=== PATIENT | male | born 1940 | race Caucasian/White ===

== ENCOUNTER 2020-03-28 18:06 | Emergency (ER) | payer MEDICARE, OTHER, SELFPAY ==
[2020-03-28] VITALS (33 sets, daily range): BP systolic 124–167; BP diastolic 75–96; PULSE 70–153; RESP 13–23; TEMP 36.7–36.9; O2SAT 94–100
--- NOTE | ~2020-03-28 | XR_ITS ---
EXAMINATION: XR chest 2V DATE: 03/28/2020 18:52 INDICATION: Weakness TECHNIQUE: AP and lateral views of the chest are obtained. COMPARISON: None available FINDINGS: There are minimal airspace opacities of the right lower lobe. There is no pleural effusion or pneumothorax. The cardiomediastinal silhouette is normal. There is a moderate-sized sliding hiatal hernia. There is moderate thoracic spondylosis. IMPRESSION: 1. Minimal airspace opacities of the right lung base, consistent with atelectasis versus pneumonia. 2. Moderate-sized hiatal hernia. Reviewed, dictated and finalized at location A. IMPRESSION: 1. Minimal airspace opacities of the right lung base, consistent with atelectas is versus pneumonia. 2. Moderate-sized hiatal hernia.
--- NOTE | ~2020-03-28 | CT_ITS ---
EXAMINATION: CT brain wo con INDICATION: Weakness and falls COMPARISON: 12/13/2018 TECHNIQUE: Standard unenhanced head CT. The dose-length product (DLP) was 605.33 mGy-cm. The mA was a djusted according to patient size. Iterative reconstruction technique was employed. FINDINGS: There is no acute intraparenchymal hemorrhage. No evidence of mass lesion. No evidence of a cute infarction. There is moderate periventricular and subcortical hypodensity probably related to sm all vessel ischemic disease. There is moderate prominence of the sulci and ventricles related to cere bral atrophy. Intracranial calcified cerebral atherosclerosis is noted. There are no extra-axial marissa ections. There is no mass effect or midline shift. The orbits and soft tissues are unremarkable. The visualized sinuses and mastoid air cells are well aerated. IMPRESSION: 1. No acute intracranial abnormality. 2. Age related findings. Reviewed, dictated and finalized at location A.
--- NOTE | 2020-03-28 18:26 | ECG_ITS ---
Measurements Intervals [place] Rate: 72 P: 22 TN: 144 QRS: 25 QRSD: 94 T: 21 QT: 395 QTc: 434 Interpretive Statements SINUS RHYTHM NORMAL ECG Electronically Signed On 03-28-2020 19:18:01 CDT by Feliciano Can D.O.
[2020-03-28 18:44] LABS: Basophils Absolute Auto 0.1 K/mm3 (0.0-0.1); Basophils Percent Auto 0.6 % (0.2-1.2); Eosinophils Absolute Auto 0.3 K/mm3 (0-0.3); Eosinophils Percent Auto 2.5 % (0-4.4); Hematocrit 46.4 % (42.0-52.0); Hemoglobin 15.1 g/dL (14.0-18.0); Immature Granulocyte Absolute 0.11 K/mm3 (0.00-0.031); Lymphocytes Absolute Auto 1.24 K/mm3 (0.9-3.2); Lymphocytes Percent Auto 11.3 % (18.3-44.2); Mean Corpuscular HGB Conc 32.5 g/dl (32-36); Mean Corpuscular Hemoglobin 31.9 pg (26-34); Mean Corpuscular Volume 97.9 fl (80-100); Mean Platelet Volume 10.5 fl (7.4-10.4); Monocytes Absolute Auto 1.4 K/mm3 (0.1-0.6); Monocytes Percent Auto 12.5 % (2.6-8.5); Neutrophils Absolute Auto 7.9 K/mm3 (1.3-6.7); Neutrophils Percent Auto 72.1 % (45.5-73.1); Platelet Count Result 237 k/mm3 (150-375); Red Blood Count 4.74 M/mm3 (4.6-6.20)
--- NOTE | 2020-03-28 19:08 | ED.WEAKNESS ---
HPI - Weakness General Chief complaint: Weakness Stated complaint: old age Time Seen by Provider: 03/28/20 19:05 History of Present Illness HPI Narrative: Brought in by his daughter from the [facility] for multiple falls. He has reportedly fallen several times over the past week. No noted injuries. He denies any complaints, but says that he does feel weak in the legs. His daughter says that this is the first time she has seen him in a long time and his mobility is noticeably worse. History limited by dementia Related Data Home Medications Medication Instructions Recorded Confirmed coenzyme Q10 100 mg capsule 100 mg PO DAILY 11/14/19 11/14/19 donepezil 10 mg tablet 10 mg PO ONCE 11/14/19 11/14/19 lutein 6 mg capsule 6 mg PO DAILY 11/14/19 11/14/19 docusate sodium [Colace] 100 mg PO DAILY 03/28/20 Allergies Allergy/AdvReac Type Severity Reaction Status Date / Time Penicillins Allergy Unknown Unknown Verified 03/28/20 19:17 Review of Systems Review of Systems: All systems reviewed & are unremarkable except as noted in HPI and below Constitutional: Constitutional: Denies chills and Denies fever(s) Eyes: Eyes: Denies change in vision Cardiovascular: Cardiovascular: Denies chest pain Respiratory: Respiratory: Denies dyspnea Gastrointestinal: Gastrointestinal: Denies constipation, Denies diarrhea, Denies nausea and Denies vomiting Genitourinary: Genitourinary: Denies hematuria and Denies dysuria Neurologic: Denies vertigo, Denies dizziness, Denies syncope, Denies headache(s), Denies numbness and Reports weakness PMFSH Past Medical History Medical History Allergies Chronic atrial fibrillation Dementia without behavioral disturbance 01/30/19 Dyslipidemia Essential (primary) hypertension GERD without esophagitis Hx of bladder problems Prostate disease Rosacea Stroke 09/2018 Unsteady gait Surgical History Surgical History No pertinent past surgical history Family History Family History Father Hypertension Family history of cardiovascular disease Mother Carcinoma of colon Social History Social History Smoking status: Never smoker Second hand tobacco smoke exposure: No Alcohol intake: former Substance use: never Substance use type: does not use Gender identity (if verbalized by the patient): Male Exam Const: General: no acute distress and alert Orientation/consciousness: patient oriented x3 HENMT: Head: normal to inspection Mouth: Yes moist mucous membranes Eyes: Pupils: Equal, round and reactive pupils present Resp: Effort & Inspection: normal respiratory effort Auscultation: clear to auscultation bilaterally Cardio: Rate: regular rate Rhythm: regular rhythm Skin: General skin exam: normal color Neuro: General: patient oriented x3, moves all extremities, no focal motor deficits and CN's II-XI intact bilaterally Speech: normal speech Extrem: General: no edema Course Vital Signs Vital signs: Vital Signs Temperature 36.9 C 03/28/20 18:08 Pulse Rate 85 03/28/20 18:08 Respiratory Rate 18 03/28/20 18:08 Blood Pressure 136/75 03/28/20 18:08 Pulse Oximetry 98 03/28/20 18:08 Temperature 36.7 C 03/28/20 23:28 Pulse Rate 73 03/28/20 23:28 Respiratory Rate 17 03/28/20 23:28 Blood Pressure 159/95 H 03/28/20 23:28 Pulse Oximetry 100 03/28/20 23:28 MDM - Weakness MDM Narrative Medical decision making narrative: Work-up is essentially negative for acute injury or illness. His orthostatics were notably positive, although he had a breif period of a-fib during the test. Following hydration he did somewhat better. I feel that his weakness is most likely due to deconditioning from lack of activity during the COV-19
[2020-03-28 19:38] LABS: Alanine Aminotransferase 13 U/L (4-50); Albumin Level 3.9 g/dL (3.5-5.1); Alkaline Phosphatase 70 U/L (38-126); Aspartate Amino Transferase 22 U/L (17-59); Bilirubin,Total 0.9 mg/dL (0.2-1.3); Blood Urea Nitrogen 18 mg/dL (9-20); Carbon Dioxide 29 mmol/L (22-30); Chloride 104 mmol/L (98-107); Estimated CRCL calculation 55 ml/min; Estimated Glomerular Filt Rate > 60; Glucose 100 mg/dL (75-110); Potassium 4.3 mmol/L (3.4-5.0); Sodium 138 mmol/L (137-145)
[2020-03-28] MEDS: SODIUM CHLORIDE 0.9% IV 1,000 ML 999 ML IV CONT (21:58)
== END 2020-03-28 23:30 ==
PROVIDERS: General Practice; Emergency Provider Emergency Medicine; PCP Family Medicine
DX: R53.1 Weakness (principal); I48.20 Chronic atrial fibrillation, unspecified; F03.90 Unspecified dementia, unspecified severity, without behavioral disturbance, psychotic disturbance, mood disturbance, and anxiety; E78.5 Hyperlipidemia, unspecified; I10 Essential (primary) hypertension; K21.9 Gastro-esophageal reflux disease without esophagitis; Z86.73 Personal history of transient ischemic attack (TIA), and cerebral infarction without residual deficits
CPT/HCPCS: 36415; 70450; 71046; 80053; 85025; 93005; 96360; 99284; J7030

== ENCOUNTER 2021-01-30 13:38 | Inpatient (IN) | payer MEDICARE, OTHER, SELFPAY ==
[2021-01-30] VITALS (33 sets, daily range): BP systolic 110–161; BP diastolic 58–99; PULSE 55–75; RESP 11–20; TEMP 36.3; O2SAT 97–100; BMI 29.0
--- NOTE | ~2021-01-30 | CT_ITS ---
EXAMINATION: CT cervical spine wo con DATE: 01/30/2021 14:19 INDICATION: Fall with head injury TECHNIQUE: Computed tomography (CT) of the cervical spine was performed without intravenous contrast. Automated exposure control and iterative reconstruction technique were employed. The dose-length pro duct was 517.85 mGy-cm. COMPARISON: None FINDINGS: 1-2 mm anterolisthesis C4 on C5. Alignment is otherwise normal. Cervical vertebral body heights are n ormal. Chronic appearing mild anterior wedging of the incompletely visualized T3 vertebral body. No a cute fracture. Severe disc height loss with degenerative endplate changes at C3-C4 through C7-T1. Mod erate disc height loss at C2-C3, T1-T2 and T3-T4. Mild atherosclerotic calcified calcifications at th e bilateral carotid bulbs. Cervical soft tissues are otherwise unremarkable. 4-5 mm left apical nodul e. The following disc levels are specifically discussed: C2-C3: There is mild left and moderate to severe right uncovertebral joint osteoarthritis. There is s evere right and moderate to severe left facet joint osteoarthritis. There is mild bilateral neural fo raminal stenosis. There is no central canal stenosis. C3-C4: Small posterior disc osteophyte complex is present. There is moderate left and severe right un covertebral joint osteoarthritis. There is severe bilateral facet joint osteoarthritis. There is mode rate bilateral neural foraminal stenosis. There is mild central canal stenosis. C4-C5: Small posterior disc osteophyte complex is present. There is severe left and moderate right un covertebral joint osteoarthritis. There is severe right and moderate to severe left facet joint osteo arthritis. There is moderate left and moderate to severe right neural foraminal stenosis. There is mi ld central canal stenosis. C5-C6: Small posterior disc osteophyte complex is present. There is severe right and moderate to yajaira re left uncovertebral joint osteoarthritis. There is mild bilateral facet joint osteoarthritis. There is moderate bilateral neural foraminal stenosis. There is mild central canal stenosis. C6-C7: Small posterior disc osteophyte complex is present. There is moderate left and severe right un covertebral joint osteoarthritis. There is mild bilateral facet joint osteoarthritis. There is mild l eft and moderate right neural foraminal stenosis. There is mild central canal stenosis. C7-T1: There is left and severe right uncovertebral joint osteoarthritis. There is mild bilateral fac et joint osteoarthritis. There is moderate right and minimal left neural foraminal stenosis. There is no central canal stenosis. IMPRESSION: 1. Severe cervical spondylosis. No acute osseous abnormality. Reviewed, dictated and finalized at location A.
--- NOTE | ~2021-01-30 | CT_ITS ---
EXAMINATION: CT brain wo con DATE: 01/30/2021 14:19 INDICATION: Unwitnessed fall with head injury and abrasion to the right forehead TECHNIQUE: Computed tomography (CT) of the head was performed without intravenous contrast. Sagittal and coronal reconstructions were performed. The mA was adjusted according to patient size. Iterative reconstruction technique was employed. The dose-length product was 605.33 mGy-cm. COMPARISON: head CT dated 03/28/2020 FINDINGS: No fracture. Acute intracranial hemorrhage, acute infarction or abnormal extra axial fluid collection . There is mild to moderate scattered white matter hypoattenuation consistent with chronic small vess el ischemic disease. Symmetric prominence of the sulci and ventricles consistent with moderate age-ap propriate diffuse cerebral volume loss. No mass/mass effect. Changes of bilateral intraocular lens re placement. The orbits, paranasal sinuses and mastoid air cells are normal. IMPRESSION: 1. No fracture or acute intracranial process. 2. Age-related changes including moderate diffuse on loss and mild to moderate scattered white matter hypoattenuation consistent with chronic small vessel ischemic disease. Reviewed, dictated and finalized at location A. IMPRESSION: 1. No fracture or acute intracranial process. 2. Age-related changes including moderate diffuse on loss and mild to moderate scattered white matter hypoattenuation consistent with chronic small vessel isc hemic disease.
--- NOTE | ~2021-01-30 | XR_ITS ---
EXAMINATION: XR chest 1V portable DATE: 01/30/2021 14:27 INDICATION: Fall with head injury TECHNIQUE: frontal view of the chest was obtained. COMPARISON: Chest radiograph dated 03/28/2020 FINDINGS: Air-fluid level within a large hiatal hernia projecting over the normal sized heart. Mild streaky ate lectasis/scarring in the left lower lung zone. Right lung is clear. No pulmonary edema, pleural effus ion or pneumothorax. Severe left glenohumeral osteoarthritis. IMPRESSION: 1. No acute cardiopulmonary disease. 2. Large hiatal hernia. Reviewed, dictated and finalized at location A.
--- NOTE | 2021-01-30 13:45 | ECG_ITS ---
Measurements Intervals [place] Rate: 58 P: 1 DC: 159 QRS: -2 QRSD: 90 T: 31 QT: 431 QTc: 424 Interpretive Statements SINUS BRADYCARDIA BASELINE ARTIFACT- I, II, III, AVR, AVL, V1 BORDERLINE ECG Electronically Signed On 01-30-2021 14:10:27 CDT by Feliciano Can D.O.
--- NOTE | 2021-01-30 14:11 | ED.FALL ---
HPI - Fall General Chief Complaint: Fall Stated Complaint: unwitnessed fall Time Seen by Provider: 01/30/21 13:42 Source: RN notes reviewed History of Present Illness HPI Narrative: Patient presents to emergency department from assisted living via EMS for fall. Patient was found to have abrasion on right forehead and on ground by staff unwitnessed fall at the facility patient does not recall what happened is unable to give any full history patient denies any pain at this time denies any vision changes chest pain shortness of breath abdominal pain nausea or vomiting Related Data Home Medications Medication Instructions Recorded Confirmed coenzyme Q10 100 mg capsule 100 mg PO DAILY 11/14/19 11/14/19 donepezil 10 mg tablet 10 mg PO ONCE 11/14/19 11/14/19 lutein 6 mg capsule 6 mg PO DAILY 11/14/19 11/14/19 docusate sodium [Colace] 100 mg PO DAILY 03/28/20 Allergies Allergy/AdvReac Type Severity Reaction Status Date / Time Penicillins Allergy Unknown Unknown Verified 03/28/20 19:17 Review of Systems Review of Systems: Narrative: Gen.: Denies fevers or chills Eyes: Denies eye pain or visual change ENT: Denies congestion Respiratory: Denies shortness of breath or cough CV: Denies chest pain GI: Denies abdominal pain nausea, emesis Musculoskeletal: Denies back pain or muscle pain Neuro: Denies numbness, tingling, weakness or focal weakness Skin: Denies rash Except as documented, all other systems reviewed and negative PMFSH Past Medical History Medical History (Updated 01/30/21 @ 16:20 by Bud Delarosa DO) Allergies Chronic atrial fibrillation Dementia without behavioral disturbance 01/30/19 Dyslipidemia Essential (primary) hypertension GERD without esophagitis Hx of bladder problems Prostate disease Rosacea Stroke 09/2018 Unsteady gait Surgical History Surgical History No pertinent past surgical history Family History Family History Father Hypertension Family history of cardiovascular disease Mother Carcinoma of colon Social History Social History Smoking status: Never smoker Second hand tobacco smoke exposure: No Alcohol intake: former Substance use: never Substance use type: does not use Gender identity (if verbalized by the patient): Male Exam Narrative: Exam Narrative: APPEARANCE: No acute distress, nontoxic, resting in bed EYES: PERRL HEENT: Normocephalic, abrasion over right anterior forehead nares patent RESPIRATORY: No respiratory distress Clear to auscultation bilaterally with no rhonchi wheezing or rales. CARDIOVASCULAR: Regular rate and rhythm without murmurs rubs or gallops. ABDOMINAL: Soft, nontender, nondistended, no rebound or guarding MUSCULOSKELETAl: Moves all extremities. No clubbing, cyanosis or edema. NEURO: Awake and alert x 1. Following commands, speech normal, no focal deficits SKIN:: Warm, dry. No rashes lesions or abrasions PSYCHIATRIC: Normal affect/mood, Course Course Emergency Course: Discussed with ELIAS Parker for Dr. Head presentation work-up agrees with mission at this time Discussed with patient and family results of workup and diagnosis. Discussed need for admission. Patient and family understand and agree to current treatment plan Vital Signs Vital signs: Vital Signs Temperature 97.3 F L 01/30/21 13:38 Pulse Rate 60 01/30/21 13:38 Respiratory Rate 14 01/30/21 13:38 Blood Pressure 146/93 H 01/30/21 13:38 Pulse Oximetry 100 01/30/21 13:38 Temperature 97.3 F L 01/30/21 13:38 Pulse Rate 56 L 01/30/21 16:01 Respiratory Rate 11 L 01/30/21 16:01 Blood Pressure 161/80 H 01/30/21 16:01 Pulse Oximetry 98 01/30/21 15:45 MDM - Fall Lab Data Result diagrams: 01/30/21 14:22 01/30/21 14:22 Labs: Lab Results
[2021-01-30 14:34] LABS: Basophils Absolute Auto 0.1 K/mm3 (0.0-0.1); Basophils Percent Auto 0.9 % (0.2-1.2); Eosinophils Absolute Auto 0.5 K/mm3 (0-0.3); Eosinophils Percent Auto 5.8 % (0-4.4); Hematocrit 39.6 % (42.0-52.0); Hemoglobin 12.9 g/dL (14.0-18.0); Immature Granulocyte Percent A 1.1 % (0-0.5); Lymphocytes Absolute Auto 1.11 K/mm3 (0.9-3.2); Lymphocytes Percent Auto 12.1 % (18.3-44.2); Mean Corpuscular HGB Conc 32.6 g/dl (32-36); Mean Corpuscular Hemoglobin 31.2 pg (26-34); Mean Corpuscular Volume 95.7 fl (80-100); Monocytes Absolute Auto 1.4 K/mm3 (0.1-0.6); Monocytes Percent Auto 14.7 % (2.6-8.5); Neutrophils Percent Auto 65.4 % (45.5-73.1); Platelet Count Result 231 k/mm3 (150-375); Red Blood Count 4.14 M/mm3 (4.6-6.20); Red Cell Distribution Width 13.2 % (11.5-14.5); White Blood Count 9.2 K/mm3 (4.5-10.0)
[2021-01-30 14:44] LABS: INR 1.1; Partial Thromboplastin Time 26.3 SECONDS (22.3-36.8); Prothrombin Time 14.5 Seconds (11.1-14.7)
[2021-01-30 14:45] LABS: Alanine Aminotransferase 14 U/L (4-50); Albumin Level 3.7 g/dL (3.5-5.1); Alkaline Phosphatase 71 U/L (38-126); Anion Gap 5 mmol/L (8-16); Aspartate Amino Transferase 20 U/L (17-59); Bilirubin,Total 0.2 mg/dL (0.2-1.3); Blood Urea Nitrogen 16 mg/dL (9-20); Calcium 9.1 mg/dL (8.4-10.2); Carbon Dioxide 30 mmol/L (22-30); Chloride 104 mmol/L (98-107); Estimated CRCL calculation 47 ml/min; Estimated Glomerular Filt Rate 59; Glucose 114 mg/dL (75-110); Potassium 3.8 mmol/L (3.4-5.0); Sodium 139 mmol/L (137-145)
[2021-01-30 15:55] LABS: Add Urine Microscopic? YES; Appearance Urine Cloudy (Clear); Bacteria Urine Trace /hpf; Bilirubin Urine Negative (Negative); Color Urine Yellow (Yellow); Glucose Urine UA Negative (Negative); Ketones Urine Negative (Negative); Leukocyte Esterase Ur 3+ LEU/UL (Negative); Mucus Urine Few /lpf; Nitrate Urine Negative (Negative); Protein Urine 2+ mg/dL (Negative); Specific Grav Ur 1.026 (1.001-1.035); Squamous Epithelial Cell Urine Rare /hpf (Few); WBC Clumps Urine Present /HPF; WBC Urine 31-50 /hpf
[2021-01-30 15:56] LABS: Blood Urine Negative (Negative)
--- NOTE | 2021-01-30 17:14 | PC.NURSE ---
This RN attempted to call report to [phone], inpatient RN not available at this time and will return call
--- NOTE | 2021-01-30 17:21 | PC.NURSE ---
sbar refaxed to 3rd med
--- NOTE | 2021-01-30 17:55 | ADMGEN ---
This patient, Bill Martinez, was admitted to Medical Room 343-01. Patient/family oriented to hospital policies and general routines including ID bracelet, bed and alarms, visiting hours, pain management, procedures, bathroom and other care routines, personal items, smoking policy, room service/diet, and visiting hours. Information on how to activate the Rapid Response Team has been discussed. Patient/Family are encouraged to report perceived risks to care and to ask questions if they do not understand what they are told or what they should do.
[2021-01-30] MEDS: LACTATED RINGERS 1,000 ML 125 ML IV CONT (18:22)
--- NOTE | 2021-01-30 19:11 | PC.NURSE ---
Patient's daughter, Hazel, called for status update and assisted with admission questions.
--- NOTE | 2021-01-30 23:09 | PM.IMHP ---
H&P: HPI History of Present Illness Date/Time: 01/30/21 23:09 this is a 80-year-old male patient with a history of dementia. He resides alone at [facility]. The patient was found on the ground today with an abrasion on his head. He also has an abrasion to his left elbow. He had a unwitnessed fall. Patient stated he feels that he tripped over something daycare really recall what happened. H&H is 12.9 and 39.6. Radiology as no fracture or acute intracranial process. Age-related changes including moderate diffuse on loss and mild to moderate scattered white matter hypoattenuation consistent with chronic small vessel ischemic disease. Cervical spine CT was read by radiology as severe cervical spondylosis. Chest x-ray was read as no acute cardiopulmonary disease. Large hiatal hernia. Urine has 3+ leukocyte esterase. 31-50 wbc's. Trace bacteria. The patient was started on Levaquin. Patient was also started on Levaquin. The patient is being admitted to observation on the date of service of 01/30/2021. Chief Complaint: Fall Review of Systems Review of Systems: All systems reviewed & are unremarkable except as noted in HPI and below Constitutional: Constitutional: Reports as per HPI and Reports no additional constitutional complaints Eyes: Eyes: Reports as per HPI and Reports no additional eye complaints ENT: Reports system reviewed and no additional complaints, except as documented and Reports Normal hearing present Cardiovascular: Cardiovascular: Reports no additional cardiovascular complaints Respiratory: Respiratory: Reports no additional respiratory complaints and Reports no additional respiratory complaints Gastrointestinal: Gastrointestinal: Reports as per HPI and Reports no additional gastrointestinal complaints Musculoskeletal: Musculoskeletal: Reports no additional musculoskeletal complaints Integumentary/Breasts: Skin/Breast: Reports system reviewed and no additional complaints, except as docu and Reports as per HPI Neurologic: Reports system reviewed and no additional complaints, except as documented, Reports as per HPI and Reports Normal hearing present Psychiatric: Psychiatric: Reports no additional psychiatric complaints and Reports as per HPI Endocrine: Endocrine: Reports no additional endocrine complaints Hematologic/Lymphatic: Hematologic/Lymphatic: Reports no additional hematologic/lymphatic complaints Allergic/Immunologic: Allergic/Immunologic: Reports no additional allergic/immunologic complaints [facility] Past Medical History Medical History Allergies Chronic atrial fibrillation Dementia without behavioral disturbance 03/26/19 Dyslipidemia Essential (primary) hypertension GERD without esophagitis Hx of bladder problems Prostate disease Rosacea Stroke 09/2018 Unsteady gait Surgical History Surgical History No pertinent past surgical history Family History Family History Father Hypertension Family history of cardiovascular disease Mother Carcinoma of colon Social History Social History (Updated 01/30/21 @ 23:23 by Elena Martínez NP) Social History: The patient is a DNR. Patient is and has 1 daughter. He does not have a durable power [employer] team member for healthcare. The patient resides at [facility]. 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 The patient denied any alcohol, marijuana, or illicit drugs. Smoking status: Never smoker Second hand tobacco smoke exposure: No Alcohol intake: former Substance use: never Substance use type: does not use Living arrangements: alone Gender identity (if verbalized by the patient): Male Spiritual care concerns: No Meds Home Medications and Allergies Home Medications Medication Instructions
[2021-01-31] VITALS (9 sets, daily range): BP systolic 144–158; BP diastolic 78–87; PULSE 60–79; RESP 16–20; TEMP 36.1–36.6; O2SAT 94–97
[2021-01-31] MEDS: LACTATED RINGERS 1,000 ML 125 ML IV CONT (04:43)
[2021-01-31 05:37] LABS: Basophils Absolute Auto 0.1 K/mm3 (0.0-0.1); Basophils Percent Auto 0.4 % (0.2-1.2); Eosinophils Absolute Auto 0.2 K/mm3 (0-0.3); Eosinophils Percent Auto 1.5 % (0-4.4); Hematocrit 39.1 % (42.0-52.0); Hemoglobin 12.9 g/dL (14.0-18.0); Immature Granulocyte Absolute 0.11 K/mm3 (0.00-0.031); Lymphocytes Absolute Auto 0.87 K/mm3 (0.9-3.2); Lymphocytes Percent Auto 7.6 % (18.3-44.2); Mean Corpuscular Hemoglobin 31.2 pg (26-34); Mean Corpuscular Volume 94.4 fl (80-100); Mean Platelet Volume 9.1 fl (7.4-10.4); Monocytes Absolute Auto 1.4 K/mm3 (0.1-0.6); Monocytes Percent Auto 12.5 % (2.6-8.5); Neutrophils Absolute Auto 8.8 K/mm3 (1.3-6.7); Platelet Count Result 219 k/mm3 (150-375); Red Blood Count 4.14 M/mm3 (4.6-6.20); White Blood Count 11.4 K/mm3 (4.5-10.0)
[2021-01-31 06:33] LABS: Anion Gap 1 mmol/L (8-16); Blood Urea Nitrogen 12 mg/dL (9-20); Calcium 8.9 mg/dL (8.4-10.2); Carbon Dioxide 29 mmol/L (22-30); Chloride 107 mmol/L (98-107); Estimated CRCL calculation 59 ml/min; Estimated Glomerular Filt Rate > 60; Glucose 108 mg/dL (75-110); Potassium 3.7 mmol/L (3.4-5.0); Sodium 137 mmol/L (137-145)
[2021-01-31] MEDS: FAMOTIDINE 20 MG TABLET PO ×2 (08:10→20:40)
[2021-01-31] MEDS: METOPROLOL TARTRATE 12.5 MG TABLET BY MOUTH ×2 (08:10→20:39)
[2021-01-31] MEDS: CYANOCOBALAMIN 1,000 MCG TABLET 1000 MCG BY MOUTH (08:10)
[2021-01-31] MEDS: RIVAROXABAN 15 MG TABLET BY MOUTH (08:11)
[2021-01-31] MEDS: DONEPEZIL HCL 10 MG TABLET PO (08:11)
[2021-01-31] MEDS: PRAVASTATIN SODIUM 20 MG TABLET BY MOUTH (08:11)
--- NOTE | 2021-01-31 10:36 | PM.IMPN ---
Progress Note: A&P Assessment and Plan (1) Gait instability: Code(s): R26.81 - Unsteadiness on feet Status: Acute Assessment and Plan: Patient sustained unwitnessed fall at assisted living. He feels he's had more difficulty walking lately. He has shuffling gait per PT notes and may have Parkinson's? Known dementia with chronic issues of gait instability. PT/OT. Family wishes for [place] to go back to [place] and continue his current PT/OT there. COVID test for dc planning. (2) Acute UTI: Code(s): N39.0 - Urinary tract infection, site not specified Status: Acute Assessment and Plan: Abnormal UA with dysuria. Continue Levaquin (day 2) while awaiting urine culture. (3) Contusion of forehead: Code(s): S00.83XA - Contusion of other part of head, initial encounter Status: Acute Assessment and Plan: From fall. CT brain shows no acute intracranial findings. No repair required, looks good today. (4) Dementia without behavioral disturbance: Qualifiers: Dementia type: unspecified type Qualified Code(s): F03.90 - Unspecified dementia without behavioral disturbance Code(s): F03.90 - Unspecified dementia without behavioral disturbance Status: Chronic Assessment and Plan: Continue with Aricept and Seroquel. Pleasant and cooperative today. (5) Chronic atrial fibrillation: Code(s): I48.20 - Chronic atrial fibrillation, unspecified Status: Chronic Assessment and Plan: Continue home metoprolol and Xarelto. (6) Essential (primary) hypertension: Code(s): I10 - Essential (primary) hypertension Status: Chronic Assessment and Plan: BPs reviewed; a bit elevated last 150/87. Continue metoprolol. Monitor BP and adjust treatment as needed. (7) History of prostate cancer: Code(s): Z85.46 - Personal history of malignant neoplasm of prostate Status: Resolved Subjective Date/time seen: 01/31/21 10:30 Interval history: Mr. Martinez is a pleasant 80yo M with dementia admitted after a fall, also found to have UTI. He reports increased trouble walking lately. He reports dysuria over the last 3 days or so, none today. He reports weakness in his legs is why he fell, denies dizziness or chest pain at present or when he fell. Notes some mild shortness of breath with activity. No nausea, vomiting, or abdominal pain. Large ventral hernia he notes has been present for years and is not painful. Review of Systems Review of Systems: All systems reviewed & are unremarkable except as noted in HPI and below Exam Narrative: Exam Narrative: General: Male resting comfortably sitting up in bedside chair in no acute distress. HEENT: Normocephalic, EOMI, oral mucosa moist. Cardiovascular: Rate and rhythm are regular with some ectopic beats heard. Respiratory: Lungs clear to auscultation bilaterally. Respirations even and non-labored. Abdomen: Large ventral hernia is present without pain to palpation. Rest of abdomen is soft, nontender with positive bowel sounds. Extremities: Peripheral pulses intact. No edema. Neuro: Awake and alert; oriented to self and place. No focal neurological deficits. Speech is clear. Cooperative. Objective Data Vital Signs Vital Signs: Last Vital Signs Temp 97.8 F 01/31/21 14:00 Pulse 63 01/31/21 14:00 Resp 16 01/31/21 14:00 BP 150/87 H 01/31/21 14:00 Pulse Ox 97 01/31/21 14:00 Intake/Output Intake/Output: Intake & Output 01/28/21 01/29/21 01/30/21 01/31/21 23:59 23:59 23:59 23:59 Intake Total 150 1250 Output Total 400 Balance 150 850 Meds/Results Medications: Active Medications Generic Name Dose Route S
[2021-01-31] MEDS: QUEtiapine FUMARATE 25 MG TABLET BY MOUTH (17:09)
[2021-02-01 06:00] VITALS: BP 153/85; PULSE 61; RESP 18; TEMP 36.4; O2SAT 95
[2021-02-01 06:03] LABS: Basophils Absolute Auto 0.1 K/mm3 (0.0-0.1); Basophils Percent Auto 0.5 % (0.2-1.2); Eosinophils Absolute Auto 0.3 K/mm3 (0-0.3); Eosinophils Percent Auto 2.6 % (0-4.4); Hematocrit 39.5 % (42.0-52.0); Hemoglobin 12.9 g/dL (14.0-18.0); Immature Granulocyte Absolute 0.12 K/mm3 (0.00-0.031); Immature Granulocyte Percent A 1.1 % (0-0.5); Lymphocytes Absolute Auto 1.15 K/mm3 (0.9-3.2); Lymphocytes Percent Auto 10.9 % (18.3-44.2); Mean Corpuscular HGB Conc 32.7 g/dl (32-36); Mean Corpuscular Hemoglobin 30.7 pg (26-34); Mean Platelet Volume 9.2 fl (7.4-10.4); Monocytes Absolute Auto 1.5 K/mm3 (0.1-0.6); Monocytes Percent Auto 14.3 % (2.6-8.5); Neutrophils Absolute Auto 7.4 K/mm3 (1.3-6.7); Neutrophils Percent Auto 70.6 % (45.5-73.1); Platelet Count Result 230 k/mm3 (150-375); Red Cell Distribution Width 13.1 % (11.5-14.5); White Blood Count 10.5 K/mm3 (4.5-10.0)
[2021-02-01 08:35] VITALS: PULSE 66
[2021-02-01] MEDS: DONEPEZIL HCL 10 MG TABLET PO (08:35)
[2021-02-01] MEDS: METOPROLOL TARTRATE 12.5 MG TABLET BY MOUTH ×2 (08:35→21:06)
[2021-02-01] MEDS: PRAVASTATIN SODIUM 20 MG TABLET BY MOUTH (08:35)
[2021-02-01] MEDS: CYANOCOBALAMIN 1,000 MCG TABLET 1000 MCG BY MOUTH (08:35)
[2021-02-01] MEDS: RIVAROXABAN 15 MG TABLET BY MOUTH (08:35)
[2021-02-01] MEDS: FAMOTIDINE 20 MG TABLET PO ×2 (08:35→21:06)
--- NOTE | 2021-02-01 14:26 | PM.IMPN ---
Progress Note: A&P Assessment and Plan (1) Gait instability: Code(s): R26.81 - Unsteadiness on feet Status: Acute Assessment and Plan: Patient sustained unwitnessed fall at assisted living. He feels he's had more difficulty walking lately. He has shuffling gait per PT notes and may have Parkinson's? Known dementia with chronic issues of gait instability. PT/OT. Family [place] back [place] and continue his current PT/OT there. COVID test for dc planning came back late this evening, plan for dc in AM. (2) Acute UTI: Code(s): N39.0 - Urinary tract infection, site not specified Status: Acute Assessment and Plan: Abnormal UA with dysuria. Continue Levaquin (day 3). Urine culture represents possible contamination however given his symptoms will continue with current therapy. (3) Contusion of forehead: Code(s): S00.83XA - Contusion of other part of head, initial encounter Status: Acute Assessment and Plan: From fall. CT brain shows no acute intracranial findings. (4) Dementia without behavioral disturbance: Qualifiers: Dementia type: unspecified type Qualified Code(s): F03.90 - Unspecified dementia without behavioral disturbance Code(s): F03.90 - Unspecified dementia without behavioral disturbance Status: Chronic Assessment and Plan: Continue with Aricept and Seroquel. Pleasant and cooperative today. (5) Chronic atrial fibrillation: Code(s): I48.20 - Chronic atrial fibrillation, unspecified Status: Chronic Assessment and Plan: Continue home metoprolol and Xarelto. (6) Essential (primary) hypertension: Code(s): I10 - Essential (primary) hypertension Status: Chronic Assessment and Plan: BPs reviewed; last 120/68. Continue metoprolol. Monitor BP and adjust treatment as needed. (7) History of prostate cancer: Code(s): Z85.46 - Personal history of malignant neoplasm of prostate Status: Resolved Subjective Date/time seen: 02/01/21 14:00 Interval history: Mr. Martinez is a pleasant 80yo M with dementia admitted after a fall, also suspected to have UTI. He reports increased trouble walking lately. He has longstanding issues with gait. He had dysuria for 3 days prior to arrival which is now resolved. Denies chest pain or shortness of breath. Not in any pain. Large ventral hernia he notes has been present for years and is not painful. Daughter, Hazel, at the bedside. Discussed updates with patient's permission. Review of Systems Review of Systems: All systems reviewed & are unremarkable except as noted in HPI and below Exam Narrative: Exam Narrative: General: Male resting comfortably sitting up in bed in no acute distress. HEENT: Normocephalic, EOMI, oral mucosa moist. Cardiovascular: Rate and rhythm are regular with some ectopic beats heard. Respiratory: Lungs clear to auscultation bilaterally. Respirations even and non-labored. Abdomen: Large ventral hernia is present without pain to palpation. Rest of abdomen is soft, nontender with positive bowel sounds. Extremities: Peripheral pulses intact. No edema. Neuro: Awake and alert; oriented to self and place. No focal neurological deficits. Speech is clear. Cooperative. Objective Data Vital Signs Vital Signs: Vital Signs - 24 hr 01/31/21 20:39 01/31/21 21:59 02/01/21 06:00 Temperature 97.7 F 97.6 F Pulse Rate 60 78 61 Respiratory Rate 18 18 Blood Pressure 158/78 H 153/85 H Pulse Oximetry 94 95 02/01/21 08:35 Temperature Pulse Rate 66 Respiratory Rate Blood Pressure Pulse Oximetry Intake/Output Intake/Output: Intake & Output 01/29/21 0
[2021-02-01 14:36] VITALS: BP 120/68; PULSE 70; RESP 14; TEMP 36.3; O2SAT 97
[2021-02-01 15:25] LABS: SARS-CoV-2 RNA PCR Negative
[2021-02-01] MEDS: ACETAMINOPHEN 500 MG TABLET 1000 MG PO (17:20)
[2021-02-01] MEDS: QUEtiapine FUMARATE 25 MG TABLET BY MOUTH (17:20)
[2021-02-01 21:05] VITALS: BP 125/71; PULSE 93; RESP 16; TEMP 36; O2SAT 94
[2021-02-01 21:06] VITALS: PULSE 90
[2021-02-02 05:49] VITALS: BP 148/86; PULSE 62; RESP 16; TEMP 35.9; O2SAT 99
[2021-02-02 09:20] VITALS: PULSE 62
[2021-02-02] MEDS: METOPROLOL TARTRATE 12.5 MG TABLET BY MOUTH (09:20)
[2021-02-02] MEDS: FAMOTIDINE 20 MG TABLET PO (09:20)
[2021-02-02] MEDS: CYANOCOBALAMIN 1,000 MCG TABLET 1000 MCG BY MOUTH (09:21)
[2021-02-02] MEDS: RIVAROXABAN 15 MG TABLET BY MOUTH (09:21)
[2021-02-02] MEDS: DONEPEZIL HCL 10 MG TABLET PO (09:21)
[2021-02-02] MEDS: PRAVASTATIN SODIUM 20 MG TABLET BY MOUTH (09:21)
--- NOTE | 2021-02-02 19:21 | PM.DS ---
DS: Admitting Diagnosis Admitting Diagnosis Admitting Diagnosis: Fall DS: Discharge Diagnosis Discharge Diagnosis (1) Gait instability: Code(s): R26.81 - Unsteadiness on feet Status: Acute Assessment and Plan: Date of Admission 01/30/21 Date of Discharge/DOS Mr. Martinez is a 80yo M with dementia, chronic atrial fibrillation, hypertension, history of prostate cancer who presented to the ED for evaluation after an unwitnessed fall at assisted living. He describes a long-standing issue with gait instability. He fell and was found down on the floor with some slight bleeding to right forehead. CT brain demonstrated no acute intracranial abnormality. He worked with PT/OT. Placement for rehab offered, patient and family wish to bring him back to his apartment at assisted living and continue therapy there. Patient described dysuria for 3 days prior to arrival. Urinalysis grossly abnormal thus he was started on levaquin. Urine culture results were inconclusive and may have represented contamination thus unable to rule UTI in or out. Given his symptoms he was continued on antibiotic therapy and this was discussed with patient and his daughter. He was hemodynamically stable for discharge on 02/02/21 and will follow up with PCP and his established neurologist, Dr Philippe. Patient sustained unwitnessed fall at assisted living. He feels he's had more difficulty walking lately. He has shuffling gait per PT notes. Known dementia with chronic issues of gait instability. PT/OT. [place] and continue his current PT/OT there. (2) Acute UTI: Code(s): N39.0 - Urinary tract infection, site not specified Status: Suspected Assessment and Plan: Abnormal UA with dysuria. Treated with levaquin Urine culture indeterminate however given his symptoms will continue with current therapy. (3) Contusion of forehead: Code(s): S00.83XA - Contusion of other part of head, initial encounter Status: Acute Assessment and Plan: From fall. CT brain shows no acute intracranial findings. (4) Dementia without behavioral disturbance: Qualifiers: Dementia type: unspecified type Qualified Code(s): F03.90 - Unspecified dementia without behavioral disturbance Code(s): F03.90 - Unspecified dementia without behavioral disturbance Status: Chronic Assessment and Plan: Continue with Aricept and Seroquel. Pleasant and cooperative today. (5) Chronic atrial fibrillation: Code(s): I48.20 - Chronic atrial fibrillation, unspecified Status: Chronic Assessment and Plan: Continue home metoprolol and Xarelto. (6) Essential (primary) hypertension: Code(s): I10 - Essential (primary) hypertension Status: Chronic Assessment and Plan: Continue metoprolol. (7) History of prostate cancer: Code(s): Z85.46 - Personal history of malignant neoplasm of prostate Status: Resolved DS: Summary Hospital Course Hospital Course: See above Time Spent with Patient Time attestation: Total time spent providing and/or coordinating discharge services: 35 minutes Exam Narrative: Exam Narrative: General: Male resting comfortably sitting up in bed in no acute distress. HEENT: Normocephalic, EOMI, oral mucosa moist. Cardiovascular: Rate and rhythm are regular with some ectopic beats heard. Respiratory: Lungs clear to auscultation bilaterally. Respirations even and non-labored. Abdomen: Large ventral hernia is present without pain to palpation. Rest of abdomen is soft, nontender with positive bowel sounds. Extremities: Peripheral pu
--- NOTE | 2021-02-05 13:22 | PC.NURSE ---
Blood cx are negative.
== END 2021-02-02 15:45 | DRG 92 ==
LOC: ANHED 13:46 → ANH3MED 16:14
PROVIDERS: Physician Assistant; Admitting Provider Internal Medicine; Emergency Provider Emergency Medicine; PCP Family Medicine; Visit Provider Internal Medicine
DX: R26.81 Unsteadiness on feet (principal); N39.0 Urinary tract infection, site not specified; I48.20 Chronic atrial fibrillation, unspecified; Z20.822 Contact with and (suspected) exposure to COVID-19; S00.83XA Contusion of other part of head, initial encounter; S50.312A Abrasion of left elbow, initial encounter; W18.30XA Fall on same level, unspecified, initial encounter; I10 Essential (primary) hypertension; E78.5 Hyperlipidemia, unspecified; F03.90 Unspecified dementia, unspecified severity, without behavioral disturbance, psychotic disturbance, mood disturbance, and anxiety; K21.9 Gastro-esophageal reflux disease without esophagitis; K44.9 Diaphragmatic hernia without obstruction or gangrene; Z66 Do not resuscitate; Z85.46 Personal history of malignant neoplasm of prostate; Z86.73 Personal history of transient ischemic attack (TIA), and cerebral infarction without residual deficits; Z79.01 Long term (current) use of anticoagulants; Z79.899 Other long term (current) drug therapy; Z88.0 Allergy status to penicillin
CPT/HCPCS: 36415; 70450; 71045; 72125; 80048; 80053; 81001; 85025; 85610; 85730; 87040; 87086; 87088; 93005; 96361; 96365; 96366; 97110; 97116; 97161; 97165; 97530; 97535; 99285; A9270; C9803; G0378; J1956; J7120; U0003; U0005

== ENCOUNTER 2021-12-29 15:50 | Observation (INO) | payer MEDICARE, SELFPAY ==
--- NOTE | ~2021-12-29 | XR_ITS ---
EXAMINATION: XR chest 1V portable 12/29/2021 16:54 INDICATION: Transient alteration of awareness. PROCEDURE: AP portable chest COMPARISON: Comparison to multiple prior studies sequentially, with oldest reviewed study dated 01/30. FINDINGS: The lungs are clear. The cardiomediastinal silhouette is within normal limits. There are no pleural effusions. There is no pneumothorax suspected. Moderate elevation of the right diaphragm . Large hiatal hernia. IMPRESSION: 1: NO ACUTE CARDIOPULMONARY DISEASE. Reviewed, dictated and finalized at location B. DEALER
--- NOTE | ~2021-12-29 | CT_ITS ---
EXAMINATION: CT brain wo con DATE: 12/29/2021 17:00 INDICATION: Altered mental status. Confusion. TECHNIQUE: Computed tomography (CT) of the head was performed without intravenous contrast. The dose- length product was 681.00 mGy-cm. Automated exposure control and iterative reconstruction technique w ere employed. COMPARISON: CT dated 01/30/2021 FINDINGS: Generalized atrophy. There are scattered moderate periventricular and subcortical white mat ter changes, most likely related to small vessel ischemic disease (microangiopathy). No acute intracr anial hemorrhage, infarction, mass or mass effect. Paranasal sinuses and mastoids are pneumatized. No depressed skull fractures. IMPRESSION: 1. No acute intracranial abnormality. 2: Chronic age-related findings. Reviewed, dictated and finalized at location B. LUTION MANAGER
[2021-12-29 15:56] VITALS: BP 171/98; PULSE 63; RESP 15; TEMP 36.7; O2SAT 98
--- NOTE | 2021-12-29 16:22 | ECG_ITS ---
Measurements Intervals [place] Rate: 61 P: 19 NC: 168 QRS: -10 QRSD: 100 T: 40 QT: 442 QTc: 445 Interpretive Statements SINUS RHYTHM BASELINE ARTIFACT- II, III, AVR, AVF, V1-V6 NORMAL ECG Electronically Signed On 12-29-2021 18:12:57 EDGER MACHINE HELPER by Feliciano Can D.O.
[2021-12-29 16:45] LABS: Basophils Absolute Auto 0.1 K/mm3 (0.0-0.1); Basophils Percent Auto 0.6 % (0.2-1.2); Eosinophils Absolute Auto 0.4 K/mm3 (0-0.3); Eosinophils Percent Auto 3.3 % (0-4.4); Hematocrit 43.4 % (42.0-52.0); Hemoglobin 14.1 g/dL (14.0-18.0); Immature Granulocyte Absolute 0.15 K/mm3 (0.00-0.031); Immature Granulocyte Percent A 1.3 % (0-0.5); Lymphocytes Absolute Auto 1.11 K/mm3 (0.9-3.2); Lymphocytes Percent Auto 9.7 % (18.3-44.2); Mean Corpuscular HGB Conc 32.5 g/dl (32-36); Mean Corpuscular Volume 98.6 fl (80-100); Mean Platelet Volume 8.6 fl (7.4-10.4); Monocytes Absolute Auto 1.6 K/mm3 (0.1-0.6); Monocytes Percent Auto 13.9 % (2.6-8.5); Neutrophils Absolute Auto 8.1 K/mm3 (1.3-6.7); Neutrophils Percent Auto 71.2 % (45.5-73.1); Platelet Count Result 241 k/mm3 (150-375); Red Cell Distribution Width 13.5 % (11.5-14.5); White Blood Count 11.4 K/mm3 (4.5-10.0)
[2021-12-29 16:57] LABS: Alanine Aminotransferase 13 U/L (4-50); Albumin Level 4.1 g/dL (3.5-5.1); Alkaline Phosphatase 77 U/L (38-126); Anion Gap 7 mmol/L (8-16); Aspartate Amino Transferase 24 U/L (17-59); Bilirubin,Total 0.3 mg/dL (0.2-1.3); Blood Urea Nitrogen 15 mg/dL (9-20); Calcium 9.2 mg/dL (8.4-10.2); Carbon Dioxide 28 mmol/L (22-30); Chloride 104 mmol/L (98-107); Estimated CRCL calculation 57 ml/min; Estimated Glomerular Filt Rate > 60; Glucose 100 mg/dL (65-110); INR 1.1; Potassium 4.1 mmol/L (3.4-5.0); Prothrombin Time 13.5 Seconds (11.1-14.7); Sodium 139 mmol/L (137-145)
[2021-12-29 16:58] LABS: Partial Thromboplastin Time 29.2 SECONDS (22.3-36.8)
--- NOTE | 2021-12-29 17:04 | ED.AMS ---
HPI - Altered Mental Status General Chief Complaint: Altered Mental Status Stated Complaint: AMS Time Seen by Provider: 12/29/21 16:35 Source: patient, EMS and RN notes reviewed Mode of arrival: EMS Limitations: altered mental status History of Present Illness HPI narrative: This is a 81 year old male with history of atrial fibrillation, dementia, and hypertension who presents for evaluation altered mental status. EMS reports they were told patient was normal mentation at 1200 and was found altered at 1500. Patient is oriented to person only and I do not know his baseline. He denies headache, nausea, vomiting, chest pain, shortness of breath or weakness. Nursing staff states they spoke with patient's daughter over the phone. She states patient is confused normally but he is usually able to carry an appropriate conversation. Nurses states patient is repetitively saying he is okay and he is having trouble follow instructions on how to get urine sample. Related Data Home Medications Medication Instructions Recorded Confirmed coenzyme Q10 100 mg capsule 100 mg PO DAILY 11/14/19 12/29/21 lutein 6 mg capsule 6 mg PO DAILY 11/14/19 12/29/21 docusate sodium [Colace] 100 mg PO BID PRN 03/28/20 12/29/21 pravastatin 20 mg DAILY 01/30/21 12/29/21 ibuprofen 200 mg tablet 800 mg PO Q6H PRN tablet 03/06/21 12/29/21 ferrous sulfate 325 mg PO DAILY 12/29/21 12/29/21 Allergies Allergy/AdvReac Type Severity Reaction Status Date / Time Penicillins Allergy Unknown Unknown Verified 08/19/21 14:00 Review of Systems Review of Systems: All systems reviewed & are unremarkable except as noted in HPI and below PMFSH Past Medical History Medical History (Updated 12/29/21 @ 22:16 by Marietta Callahan MD) Allergies Chronic atrial fibrillation Dementia without behavioral disturbance 01/30/19 Dyslipidemia Essential (primary) hypertension GERD without esophagitis Hx of bladder problems Prostate disease Rosacea Stroke 09/2018 Unsteady gait Surgical History Surgical History No pertinent past surgical history Family History Family History Father Hypertension Family history of cardiovascular disease Mother Carcinoma of colon Social History Social History Social History: The patient is a DNR. Patient is and has 1 daughter. He does not have a durable power tax attorney for healthcare. The patient resides at [facility]. 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 The patient denied any alcohol, marijuana, or illicit drugs. Smoking status: Never smoker Second hand tobacco smoke exposure: No Alcohol intake: never Substance use: never Substance use type: does not use Gender identity (if verbalized by the patient): Male Spiritual care concerns: No Exam Const: General: no acute distress and alert HENMT: Head: normocephalic and atraumatic Face and sinus: normal facial exam, sinuses nontender and face symmetric Mouth: Yes Normal oral and palatal mucosa present, Yes lip normal, Yes oropharynx normal and Yes moist mucous membranes Eyes: Pupils: Equal, round and reactive pupils present EOM: EOMs intact bilaterally Chest: Chest palpation & inspection: normal inspection of the chest Resp: Effort & Inspection: normal respiratory effort and no retractions Auscultation: clear to auscultation bilaterally Cardio: Rate: regular rate Rhythm: regular rhythm Heart sounds: no murmurs GI: GI Palp: Yes Soft to palpation, No Tenderness to palpation present (GI), No Guarding due to palpation present (GI), No Rigid due to palpation and Yes Hernia present (incision ventral hernia) Auscultation: normal bowel sounds Skin: General skin exam: normal color Rashes: no rashes Neuro: General: mov
[2021-12-29 17:48] LABS: Add Urine Microscopic? YES; Amorphous Sediment Urine Few; Appearance Urine Clear (Clear); Bacteria Urine Trace /hpf; Bilirubin Urine Negative (Negative); Color Urine Yellow (Yellow); Glucose Urine UA Negative (Negative); Ketones Urine Negative (Negative); Leukocyte Esterase Ur 3+ LEU/UL (Negative); Mucus Urine Moderate /lpf; Nitrate Urine Negative (Negative); Protein Urine 1+ mg/dL (Negative); Specific Grav Ur 1.024 (1.001-1.035); Squamous Epithelial Cell Urine Occasional /hpf (Few); WBC Urine 31-50 /hpf
[2021-12-29 17:50] LABS: Blood Urine Negative (Negative)
[2021-12-29 18:05] VITALS: BP 168/100; PULSE 68; RESP 13; O2SAT 97
[2021-12-29 19:15] VITALS: BP 159/88; PULSE 70; RESP 13; O2SAT 95
--- NOTE | 2021-12-29 21:10 | ADMGEN ---
This patient, Bill Martinez, was admitted to Medical Room 249-01. Patient/family oriented to hospital policies and general routines including ID bracelet, bed and alarms, visiting hours, pain management, procedures, bathroom and other care routines, personal items, smoking policy, room service/diet, and visiting hours. Information on how to activate the Rapid Response Team has been discussed. Patient/Family are encouraged to report perceived risks to care and to ask questions if they do not understand what they are told or what they should do.
--- NOTE | 2021-12-29 21:12 | PM.IMHP ---
H&P: HPI History of Present Illness Date/Time: 12/29/21 21:12 Chief Complaint: Altered mental status Narrative: 81 years old male with past medical history of dementia hypertension per concern AFib presented to the hospital with altered mental status started as 3:00 p.m. patient was alert oriented to person only at the ER patient found to have dehydration and UTI given IV fluid and IV antibiotic patient currently are rales oriented able to make conversation history is limited patient denies fever or chills Patient will be admitted for further evaluation and treatment of altered mental status and UTI Review of Systems Review of Systems: History was limited because of altered mental status [facility] Past Medical History Medical History (Updated 12/29/21 @ 21:14 by Olivier Coughlin MD) Allergies Chronic atrial fibrillation Dementia without behavioral disturbance 01/30/19 Dyslipidemia Essential (primary) hypertension GERD without esophagitis Hx of bladder problems Prostate disease Rosacea Stroke 09/2018 Unsteady gait Surgical History Surgical History No pertinent past surgical history Family History Family History Father Hypertension Family history of cardiovascular disease Mother Carcinoma of colon Social History Social History Social History: The patient is a DNR. Patient is and has 1 daughter. He does not have a durable power disability attorney for healthcare. The patient resides at [facility]. 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 The patient denied any alcohol, marijuana, or illicit drugs. Smoking status: Never smoker Second hand tobacco smoke exposure: No Alcohol intake: former Substance use: never Substance use type: does not use Gender identity (if verbalized by the patient): Male Spiritual care concerns: No Meds Home Medications and Allergies Home Medications Medication Instructions Recorded Confirmed Type coenzyme Q10 100 mg capsule 100 mg PO DAILY 11/14/19 08/19/21 History lutein 6 mg capsule 6 mg PO DAILY 11/14/19 08/19/21 History docusate sodium [Colace] 100 mg PO BID PRN 03/28/20 08/19/21 History famotidine 20 mg tablet 20 mg PO BID #180 tablet 12/25/20 08/19/21 Rx pravastatin 20 mg DAILY 01/30/21 08/19/21 History metoprolol tartrate 25 mg tablet 12.5 mg PO BID #90 tablet 02/23/21 08/19/21 Rx quetiapine 25 mg tablet 25 mg PO QACDINNER #90 tablet 02/23/21 08/19/21 Rx rivaroxaban 15 mg tablet 15 mg PO DAILY #90 tablet 02/23/21 08/19/21 Rx ibuprofen 200 mg tablet 800 mg PO ONCE PRN tablet 03/06/21 08/19/21 History krill 1 cap PO DAILY #90 cap 03/24/21 08/19/21 Rx gqi-[id number]-3-[id number]-tsn-[id number] 300 mg-90 mg-24 mg-50 mg capsule cyanocobalamin (vitamin B-12) 1,000 mcg PO DAILY #90 tablet 08/03/21 08/19/21 Rx 1,000 mcg tablet donepezil 10 mg tablet 10 mg PO DAILY #31 tablet 08/31/21 Rx carbidopa 25 mg-levodopa 100 mg See Rx Instructions .ROUTE 11/03/21 Rx tablet .COMPLEX #60 tablet ferrous sulfate 325 mg PO DAILY 12/29/21 History Allergies Allergy/AdvReac Type Severity Reaction Status Date / Time Penicillins Allergy Unknown Unknown Verified 08/19/21 14:00 Vital Signs Vital Signs - 24 hr 12/29/21 15:56 12/29/21 18:05 12/29/21 19:15 Temperature 98.1 F Pulse Rate 63 68 70 Respiratory Rate 15 13 13 Blood Pressure 171/98 H 168/100 H 159/88 H Pulse Oximetry 98 97 95 Exam Narrative: Const: General: no acute distress and alert Orientation/consciousness: patient oriented x3 HENMT: Head: normocephalic and atraumatic Face and sinus: face symmetric Mouth: Yes lip normal, Yes tongue normal and Yes moist mucous membranes Teeth and gingiva: edentulous Throat: posterior oropharynx normal and tonsils normal Eyes:
[2021-12-29 21:13] VITALS: BP 136/78; PULSE 68; RESP 15; TEMP 36.2; O2SAT 94
[2021-12-29 21:15] VITALS: BMI 29.5
[2021-12-29 21:41] VITALS: PULSE 69
[2021-12-29 23:13] LABS: Basophils Absolute Auto 0.1 K/mm3 (0.0-0.1); Basophils Percent Auto 0.5 % (0.2-1.2); Eosinophils Absolute Auto 0.1 K/mm3 (0-0.3); Eosinophils Percent Auto 1.2 % (0-4.4); Hematocrit 40.3 % (42.0-52.0); Immature Granulocyte Percent A 0.9 % (0-0.5); Lymphocytes Percent Auto 9.2 % (18.3-44.2); Mean Corpuscular HGB Conc 32.3 g/dl (32-36); Mean Corpuscular Hemoglobin 31.7 pg (26-34); Mean Corpuscular Volume 98.3 fl (80-100); Monocytes Absolute Auto 1.4 K/mm3 (0.1-0.6); Monocytes Percent Auto 13.2 % (2.6-8.5); Neutrophils Absolute Auto 8.2 K/mm3 (1.3-6.7); Platelet Count Result 230 k/mm3 (150-375); Red Cell Distribution Width 13.3 % (11.5-14.5); White Blood Count 10.9 K/mm3 (4.5-10.0)
[2021-12-29] MEDS: SODIUM CHLORIDE 0.9% IV 1,000 ML 100 ML IV CONT (23:42)
[2021-12-29 23:47] LABS: Alanine Aminotransferase 14 U/L (4-50); Albumin Level 3.5 g/dL (3.5-5.1); Alkaline Phosphatase 66 U/L (38-126); Anion Gap 6 mmol/L (8-16); Aspartate Amino Transferase 19 U/L (17-59); Bilirubin,Total 0.5 mg/dL (0.2-1.3); Blood Urea Nitrogen 13 mg/dL (9-20); Calcium 8.9 mg/dL (8.4-10.2); Carbon Dioxide 26 mmol/L (22-30); Chloride 106 mmol/L (98-107); Estimated CRCL calculation 62 ml/min; Estimated Glomerular Filt Rate > 60; Glucose 105 mg/dL (65-110); Potassium 4.2 mmol/L (3.4-5.0); Sodium 138 mmol/L (137-145)
[2021-12-30] VITALS (13 sets, daily range): BP systolic 142–157; BP diastolic 73–91; PULSE 59–108; RESP 16–18; TEMP 36.3–36.4; O2SAT 94–98
[2021-12-30 00:03] LABS: Glucose Point of Care 116 mg/dl (65-105)
[2021-12-30 06:15] LABS: Basophils Absolute Auto 0.1 K/mm3 (0.0-0.1); Basophils Percent Auto 0.6 % (0.2-1.2); Eosinophils Absolute Auto 0.1 K/mm3 (0-0.3); Eosinophils Percent Auto 1.2 % (0-4.4); Hematocrit 40.2 % (42.0-52.0); Hemoglobin 13.2 g/dL (14.0-18.0); Immature Granulocyte Percent A 1.1 % (0-0.5); Lymphocytes Absolute Auto 0.96 K/mm3 (0.9-3.2); Lymphocytes Percent Auto 10.6 % (18.3-44.2); Mean Corpuscular HGB Conc 32.8 g/dl (32-36); Mean Corpuscular Hemoglobin 32.4 pg (26-34); Mean Corpuscular Volume 98.8 fl (80-100); Monocytes Absolute Auto 1.2 K/mm3 (0.1-0.6); Monocytes Percent Auto 13.4 % (2.6-8.5); Neutrophils Absolute Auto 6.6 K/mm3 (1.3-6.7); Neutrophils Percent Auto 73.1 % (45.5-73.1); Platelet Count Result 231 k/mm3 (150-375); Red Blood Count 4.07 M/mm3 (4.6-6.20); Red Cell Distribution Width 13.3 % (11.5-14.5); White Blood Count 9.1 K/mm3 (4.5-10.0)
[2021-12-30 06:49] LABS: Alanine Aminotransferase 15 U/L (4-50); Albumin Level 3.7 g/dL (3.5-5.1); Alkaline Phosphatase 64 U/L (38-126); Anion Gap 4 mmol/L (8-16); Aspartate Amino Transferase 21 U/L (17-59); Bilirubin,Total 0.7 mg/dL (0.2-1.3); Blood Urea Nitrogen 12 mg/dL (9-20); Calcium 8.7 mg/dL (8.4-10.2); Carbon Dioxide 26 mmol/L (22-30); Chloride 105 mmol/L (98-107); Estimated CRCL calculation 56 ml/min; Estimated Glomerular Filt Rate > 60; Glucose 112 mg/dL (65-110); Potassium 4.1 mmol/L (3.4-5.0); Sodium 135 mmol/L (137-145)
[2021-12-30 08:00] LABS: Glucose Point of Care 98 mg/dl (65-105)
[2021-12-30] MEDS: CYANOCOBALAMIN 1,000 MCG TABLET 1000 MCG PO (08:07)
[2021-12-30] MEDS: DONEPEZIL HCL 10 MG TABLET PO (08:07)
[2021-12-30] MEDS: FAMOTIDINE 20 MG TABLET PO ×2 (08:07→16:04)
[2021-12-30] MEDS: CARBIDOPA/LEVODOPA 25/100 MG TABLET 1 TABLET PO ×2 (08:07→16:02)
[2021-12-30] MEDS: PRAVASTATIN SODIUM 20 MG TABLET BY MOUTH (08:07)
[2021-12-30] MEDS: METOPROLOL TARTRATE 12.5 MG TABLET PO ×2 (08:08→16:02)
[2021-12-30] MEDS: TOLNAFTATE 1% POWDER 45 GM BTL 1 APPLIC TOPICAL ×2 (09:53→21:56)
[2021-12-30] MEDS: SODIUM CHLORIDE 0.9% IV 1,000 ML 100 ML IV CONT (09:53)
--- NOTE | 2021-12-30 10:28 | PM.IMPN ---
Progress Note: A&P Additional [facility] [place] [address] History & Physical ReportSigned Patient: Bill Martinez CMR#: [id number]: 2Acct:[id number]/Sex: 81 / MADM Date: 12/29/21Loc: [id number] Dr: Olivier Coughlin MD cc: Olivier Coughlin M.A., MD; Marietta Callahan MD; Lisa Taylor MD~ H&P: HPI History of Present Illness Date/Time: 12/29/21 21:12 Chief Complaint: Altered mental status Narrative: 81 years old male with past medical history of dementia hypertension per concern AFib presented to the hospital with altered mental status started as 3:00 p.m. patient was alert oriented to person only at the ER patient found to have dehydration and UTI given IV fluid and IV antibiotic patient currently are rales oriented able to make conversation history is limited patient denies fever or chills Patient will be admitted for further evaluation and treatment of altered mental status and UTI Review of Systems Review of Systems: History was limited because of altered mental status [facility] Past Medical History Medical History (Updated 12/29/21 @ 21:14 by Olivier Coughlin MD) Allergies Chronic atrial fibrillation Dementia without behavioral disturbance 01/30/19 Dyslipidemia Essential (primary) hypertension GERD without esophagitis Hx of bladder problems Prostate disease Rosacea Stroke 09/2018 Unsteady gait Surgical History Surgical History No pertinent past surgical history Family History Family History Father Hypertension Family history of cardiovascular disease Mother Carcinoma of colon Social History Social History Social History: The patient is a DNR. Patient is and has 1 daughter. He does not have a durable power commercial real estate attorney for healthcare. The patient resides at [facility]. 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 The patient denied any alcohol, marijuana, or illicit drugs. Smoking status: Never smoker Second hand tobacco smoke exposure: No Alcohol intake: former Substance use: never Substance use type: does not use Gender identity (if verbalized by the patient): Male Spiritual care concerns: No Meds Home Medications and Allergies Home Medications Medication Instructions Recorded Confirmed Type coenzyme Q10 100 mg capsule 100 mg PO DAILY 11/14/19 08/19/21 History lutein 6 mg capsule 6 mg PO DAILY 11/14/19 08/19/21 History docusate sodium [Colace] 100 mg PO BID PRN 03/28/20 08/19/21 History famotidine 20 mg tablet 20 mg PO BID #180 tablet 12/25/20 08/19/21 Rx pravastatin 20 mg DAILY 01/30/21 08/19/21 History metoprolol tartrate 25 mg tablet 12.5 mg PO BID #90 tablet 02/23/21 08/19/21 Rx quetiapine 25 mg tablet 25 mg PO QACDINNER #90 tablet 02/23/21 08/19/21 Rx rivaroxaban 15 mg tablet 15 mg PO DAILY #90 tablet 02/23/21 08/19/21 Rx ibuprofen 200 mg tablet 800 mg PO ONCE PRN tablet 03/06/21 08/19/21 History krill 1 cap PO DAILY #90 cap 03/24/21 08/19/21 Rx ogo-hc-9-jyl-usm-rjpyhfjmkfmdr 300 mg-90 mg-24 mg-50 mg capsule cyanocobalamin (vitamin B-12) 1,000 mcg PO DAILY #90 tablet 08/03/21 08/19/21 Rx 1,000 mcg tablet donepezil 10 mg tablet 10 mg PO DAILY #31 tablet 08/31/21 Rx carbidopa 25 mg-levodopa 100 mg See Rx Instructions .ROUTE 11/03/21 Rx tablet .COMPLEX #60 tablet ferrous sulfate 325 mg PO DAILY 12/29/21 History Allergies Allergy/AdvReac Type Severity Reaction Status Date / Time Penicillins Allergy Unknown Unknown Verified 08/19/21 14:00 Vital Signs Vital Signs - 24 hr 12/29/21 15:56 12/29/21 18:05 12/29/21 19:15 Temperature 98.1 F Pulse Rate 63 68 70 Respiratory Rate 15 13 13 Blood Pressure 171/98 H 168/100 H 159/88 H Puls
[2021-12-30 12:21] LABS: Glucose Point of Care 104 mg/dl (65-105)
[2021-12-30 14:46] LABS: Magnesium 2.3 mg/dL (1.6-2.3)
[2021-12-30] MEDS: RIVAROXABAN 15 MG TABLET PO (16:04)
[2021-12-30 16:49] LABS: Glucose Point of Care 122 mg/dl (65-105)
[2021-12-30 22:25] LABS: Glucose Point of Care 111 mg/dl (65-105)
[2021-12-31] VITALS (13 sets, daily range): BP systolic 147–157; BP diastolic 82–88; PULSE 63–83; RESP 16–20; TEMP 36.3–36.7; O2SAT 94–98
[2021-12-31 06:16] LABS: Basophils Absolute Auto 0.1 K/mm3 (0.0-0.1); Basophils Percent Auto 0.8 % (0.2-1.2); Eosinophils Absolute Auto 0.1 K/mm3 (0-0.3); Eosinophils Percent Auto 1.1 % (0-4.4); Hematocrit 40.6 % (42.0-52.0); Hemoglobin 13.6 g/dL (14.0-18.0); Immature Granulocyte Absolute 0.11 K/mm3 (0.00-0.031); Immature Granulocyte Percent A 1.1 % (0-0.5); Lymphocytes Percent Auto 10.2 % (18.3-44.2); Mean Corpuscular HGB Conc 33.5 g/dl (32-36); Mean Corpuscular Hemoglobin 32.2 pg (26-34); Monocytes Absolute Auto 1.4 K/mm3 (0.1-0.6); Neutrophils Absolute Auto 7.2 K/mm3 (1.3-6.7); Neutrophils Percent Auto 72.8 % (45.5-73.1); Platelet Count Result 243 k/mm3 (150-375); Red Blood Count 4.23 M/mm3 (4.6-6.20); Red Cell Distribution Width 13.5 % (11.5-14.5); White Blood Count 9.8 K/mm3 (4.5-10.0)
[2021-12-31 07:56] LABS: Alanine Aminotransferase 16 U/L (4-50); Albumin Level 3.7 g/dL (3.5-5.1); Alkaline Phosphatase 67 U/L (38-126); Anion Gap 5 mmol/L (8-16); Aspartate Amino Transferase 26 U/L (17-59); Bilirubin,Total 0.6 mg/dL (0.2-1.3); Blood Urea Nitrogen 9 mg/dL (9-20); Calcium 8.6 mg/dL (8.4-10.2); Carbon Dioxide 27 mmol/L (22-30); Chloride 106 mmol/L (98-107); Estimated CRCL calculation 62 ml/min; Estimated Glomerular Filt Rate > 60; Glucose 107 mg/dL (65-110); Magnesium 2.1 mg/dL (1.6-2.3); Potassium 3.9 mmol/L (3.4-5.0); Sodium 138 mmol/L (137-145)
[2021-12-31] MEDS: CARBIDOPA/LEVODOPA 25/100 MG TABLET 1 TABLET PO ×2 (08:01→17:41)
[2021-12-31] MEDS: DONEPEZIL HCL 10 MG TABLET PO (08:01)
[2021-12-31] MEDS: FAMOTIDINE 20 MG TABLET PO ×2 (08:01→17:41)
[2021-12-31] MEDS: METOPROLOL TARTRATE 12.5 MG TABLET PO ×2 (08:01→17:41)
[2021-12-31] MEDS: CYANOCOBALAMIN 1,000 MCG TABLET 1000 MCG PO (08:01)
[2021-12-31] MEDS: PRAVASTATIN SODIUM 20 MG TABLET BY MOUTH (08:02)
[2021-12-31] MEDS: TOLNAFTATE 1% POWDER 45 GM BTL 1 APPLIC TOPICAL ×2 (08:03→20:54)
[2021-12-31 08:13] LABS: Glucose Point of Care 101 mg/dl (65-105)
--- NOTE | 2021-12-31 09:42 | PM.IMPN ---
Progress Note: A&P Additional Plan Assessment and plan (1) Acute UTI: Code(s): N39.0 - Urinary tract infection, site not specified Status: Suspected Assessment and Plan: - Follow urine culture to resolution - Continue Levaquin until Culture results. (2) GERD without esophagitis: Code(s): K21.9 - Gastro-esophageal reflux disease without esophagitis Status: Acute Assessment and Plan: - Continue Famotidine 20 mg po BID (3) History of prostate cancer: Code(s): Z85.46 - Personal history of malignant neoplasm of prostate Status: Resolved Assessment and Plan: - Follow-up with PCP as outpatient for routine PSA checks to assess for metastasis. (4) Essential (primary) hypertension: Code(s): I10 - Essential (primary) hypertension Status: Chronic Assessment and Plan: - Continue Metoprolol 12.5 mg po BID and monitor. Pt's BP was elevated overnight, so Hydralazine 10 mg po prn is also ordered with parameters for SBP>180 and DBP>90. - Pt's BP still remains slightly elevated in 150s/80s. Not high enough to require the Hydralazine, but high enough to initiate another medication. I will start Amlodipine 5 mg po daily and monitor as pt. is not ready for discharge yet. (5) Dyslipidemia: Code(s): E78.5 - Hyperlipidemia, unspecified Status: Acute Assessment and Plan: - Continue Pravastatin 20 mg po daily. (6) Chronic atrial fibrillation: Code(s): I48.20 - Chronic atrial fibrillation, unspecified Status: Chronic Assessment and Plan: - Continue Xarelto 15 mg po Daily and continue to monitor on Telemetry. - Hgb stable. (7) Acute metabolic encephalopathy: Code(s): G93.41 - Metabolic encephalopathy Status: Acute Assessment and Plan: - Continues to be Alert and oriented to self and place today. Time Spent With Patient Time with patient: less than 15 minutes Subjective Date/time seen: 12/31/21 0712 This pt. was examined at the bedside in interval assessment. He has no new complaints today and he reports that he is without pain or dyspnea. There are no other complaints at this time. Yesterday he had an intermittent time of elevated pulse but he was asymptomatic. He has had no other complaints. Nursing mentioned that he had a dark BM yesterday, so an occult stool is ordered. His Hgb is stable with an increase today to 13.6 from 13.2. Pt. is pleasant today without any signs of acute distress and is still alert and oriented to self and place only. Review of Systems Review of Systems: No new complaints, concerns or symptoms to report. All systems reviewed & are unremarkable except as noted in HPI and below Exam Const: General: comfortable and no acute distress; No in distress HENMT: Mouth: Yes moist mucous membranes Neck: Neck: supple and no JVD Resp: Effort & Inspection: normal respiratory effort Auscultation: clear to auscultation bilaterally Cardio: Rate: regular rate Rhythm: regular rhythm GI: GI Palp: Yes Soft to palpation, No Tenderness to palpation present (GI) and Yes Hernia present (Large ventral hernia noted without any signs of strangulation. ) Auscultation: normal bowel sounds Skin: General skin exam: normal color, no rashes or lesions noted and no erythema Neuro: General: gait normal Speech: normal speech Motor exam (neuro): Normal motor muscle tone present throughout Extrem: General: normal to inspection Right upper extremity: normal to inspection Left upper extremity: normal to inspection Right lower extremity: normal to inspection Left lower extremity: normal to inspection Psych: Mental Status: mental status grossly normal Affect: normal affect and No Anxious affect present Thought content: Yes Normal thought content present Objective Data Vital Signs Vital Signs: Vital Signs - 24 hr 12/30/21 12:00 12/30/21 14:48 12/30/21 16:00 Temperature 97.6 F Pulse Rate 69 66 68 Respi
[2021-12-31] MEDS: SODIUM CHLORIDE 0.9% IV 1,000 ML 100 ML IV CONT (10:17)
[2021-12-31] MEDS: amLODIPine BESYLATE 5 MG TABLET PO (10:45)
[2021-12-31] MEDS: RIVAROXABAN 15 MG TABLET PO (17:41)
[2022-01-01] VITALS: PULSE 75
[2022-01-01 03:35] VITALS: BP 159/85; PULSE 77; RESP 22; TEMP 36.4; O2SAT 93
[2022-01-01 04:00] VITALS: PULSE 66
[2022-01-01 08:03] VITALS: PULSE 74
[2022-01-01 08:44] VITALS: PULSE 80
[2022-01-01] MEDS: amLODIPine BESYLATE 5 MG TABLET PO (08:44)
[2022-01-01] MEDS: METOPROLOL TARTRATE 12.5 MG TABLET PO (08:44)
[2022-01-01] MEDS: PRAVASTATIN SODIUM 20 MG TABLET BY MOUTH (08:44)
[2022-01-01] MEDS: CYANOCOBALAMIN 1,000 MCG TABLET 1000 MCG PO (08:44)
[2022-01-01] MEDS: DONEPEZIL HCL 10 MG TABLET PO (08:44)
[2022-01-01] MEDS: CARBIDOPA/LEVODOPA 25/100 MG TABLET 1 TABLET PO (08:44)
[2022-01-01] MEDS: FAMOTIDINE 20 MG TABLET PO (08:44)
[2022-01-01] MEDS: TOLNAFTATE 1% POWDER 45 GM BTL 1 APPLIC TOPICAL (08:45)
--- NOTE | 2022-01-01 09:24 | PM.DS ---
DS: Admitting Diagnosis Discharge Date 01/01/2022 Admitting Diagnosis Acute Urinary Tract Infection GERD History of Prostate Cancer Hypertension Dyslipidemia Chronic Atrial Fibrillation Acute Metabolic Encephalopathy DS: Discharge Diagnosis Discharge Diagnosis (1) Acute UTI: Onset Date: ~12/29/21 Code(s): N39.0 - Urinary tract infection, site not specified Status: Acute Assessment and Plan: - Urinalysis in ER showed possible Acute UTI. - Pt. treated with Levaquin IV for 4 days. - Urine culture returned with mixed vane only. - Stable to discharge home with an additional 3 days of Levaquin po to complete course of abx and help prevent resistance. - Review of past history does not show that there are any Urine cultures that have grown any organisms. (2) Acute metabolic encephalopathy: Onset Date: Unknown Code(s): G93.41 - Metabolic encephalopathy Status: Chronic Assessment and Plan: - Likely acute on chronic as pt. has history of Dementia and is not always oriented x3. - Pt. has waxing and waning levels of orientation, but appears improved today and is deemed safe to return back to assisted living. - PT has consulted and there are no recommendations today for any further PT after discharge. - Mental status changes are likely due to his Parkinsons Dementia. Pt. will continue his Aricept and Carbidopa/Levodopa. (3) GERD without esophagitis: Onset Date: Unknown Code(s): K21.9 - Gastro-esophageal reflux disease without esophagitis Status: Chronic Assessment and Plan: - Continue Famotidine 20 mg po BID - No acute issues with this diagnosis during inpatient stay. (4) History of prostate cancer: Onset Date: Unknown Code(s): Z85.46 - Personal history of malignant neoplasm of prostate Status: Resolved Assessment and Plan: - Pt. to follow with Urology as per their discretion. (5) Dyslipidemia: Onset Date: Unknown Code(s): E78.5 - Hyperlipidemia, unspecified Status: Chronic Assessment and Plan: - Continue a heart healthy diet - Continue Pravastatin 20 mg po daily. (6) Chronic atrial fibrillation: Onset Date: Unknown Code(s): I48.20 - Chronic atrial fibrillation, unspecified Status: Chronic Assessment and Plan: - Stable diagnosis during this inpatient admission - Continue Xarelto 15 mg po daily at home. (7) Hypertension: Onset Date: Unknown Qualifiers: Hypertension type: primary hypertension Qualified Code(s): I10 - Essential (primary) hypertension Code(s): I10 - Essential (primary) hypertension Status: Chronic Assessment and Plan: - Stable diagnosis during this inpatient hospital admission. - Continue home medications of Metoprolol Tartrate 12.5 mg BID - Pt. has not required use of prn meds for control here. DS: Summary Hospital Course Hospital Course: This 81 year old male patient with significant PMH of Chronic Atrial Fibrillation, Dementia, Parkinson's disease, Dyslipidemia, Hypertension, CVA in 2018, and prior Prostate CA, presented to the ER on 12/29/21 from his assisted living requiring evaluation for his altered mental status. Patient's daughter endorsed that he is confused at baseline, but she believed it to be more than usual. Pt. endorsed no complaints in ED of any pain, dyspnea or any N/V/Urinary complaints. His labs were significant for an elevated WBC count of 11.4, and UA that showed 1+ Protein, 3+ Leukocyte Esterase. He was not septic. He was admitted for treatment of UTI and presumed Metabolic Encephalopathy secondary to the UTI. During course of hospitalization, the patient received IV Levaquin for his treatment as well as IVF. His Vitals remained stable and his WBC's returned to normal. He had otherwise unremarkable labs. Urine culture resulted showing multiple vane and probable contaminate. Pt. was evaluated by Physical therapy and mitul
== END 2022-01-01 13:02 | disposition home or self-care (01) ==
LOC: ANHED 16:51 → ANH2MED 21:48
PROVIDERS: Emergency Medicine; Admitting Provider Internal Medicine; Emergency Provider General Practice; PCP Family Medicine; Visit Provider Nurse Practitioner Adult Health
DX: N39.0 Urinary tract infection, site not specified (principal); E86.0 Dehydration; G93.41 Metabolic encephalopathy; I10 Essential (primary) hypertension; F03.90 Unspecified dementia, unspecified severity, without behavioral disturbance, psychotic disturbance, mood disturbance, and anxiety; I48.20 Chronic atrial fibrillation, unspecified; E78.5 Hyperlipidemia, unspecified; K21.9 Gastro-esophageal reflux disease without esophagitis; Z86.73 Personal history of transient ischemic attack (TIA), and cerebral infarction without residual deficits; Z66 Do not resuscitate; Z79.01 Long term (current) use of anticoagulants; Z85.46 Personal history of malignant neoplasm of prostate
CPT/HCPCS: 36415; 70450; 71045; 80053; 81001; 82948; 83735; 85025; 85610; 85730; 87086; 87088; 93005; 96361; 96365; 96366; 97161; 99285; A9270; G0378; J1956; J7030

== ENCOUNTER 2022-02-17 19:09 | Observation (INO) | payer MEDICARE, SELFPAY ==
--- NOTE | ~2022-02-17 | XR_ITS ---
EXAMINATION: XR chest 1V portable Exam Date/Time: 02/17/2022 19:50 CDT CLINICAL HISTORY: Syncope, Elevated WBC Comparison: 12/29/2021. RESULT: Lines, tubes, and devices: None. Lungs and pleura: Patchy subsegmental opacities in the left lung base. Cardiomediastinal silhouette: Stable cardiomediastinal silhouette. Other: No acute osseous or upper abdominal finding. IMPRESSION: Left lower lung atelectasis or consolidation. Reviewed, dictated and finalized at location K.
[2022-02-17 19:10] VITALS: BP 111/61; PULSE 70; RESP 14; TEMP 36.1; O2SAT 95
--- NOTE | 2022-02-17 19:20 | ECG_ITS ---
Measurements Intervals [place] Rate: 65 P: UT: 0 QRS: 15 QRSD: 90 T: 27 QT: 459 QTc: 478 Interpretive Statements ATRIAL FIBRILLATION PROLONGED QT INTERVAL ABNORMAL ECG COMPARED TO ECG 12/29/2021 16:04:54 ATRIAL FIBRILLATION NOW PRESENT PROLONGED QT INTERVAL NOW PRESENT Electronically Signed On 02-18-2022 16:42:54 CDT by Lars Benavidez M.D.
--- NOTE | 2022-02-17 19:28 | ED.SYNCOPE ---
HPI - Syncope General Chief Complaint: Syncope Stated Complaint: SYNCOPAL EPISODE Time Seen by Provider: 02/17/22 19:19 Source: patient Mode of arrival: EMS Limitations: no limitations History of Present Illness HPI narrative: 81-year-old male brought in by EMS from a care home. He was sitting on the toilet having a bowel movement he had a syncopal episode. Apparently had these episodes where he cannot felt like he was going unresponsive a couple times. EMS arrived as noted to be slightly hypotensive subsequently was given a fluid bolus and his blood pressure was up to about 110s to 120s systolic this time. Patient denies any chest pain. Patient is on Xarelto for atrial fibrillation but denies any blood in his stools or melanotic stools. He states he actually feels much better at this point. He states he has had episodes like this that have happened in the past. Related Data Home Medications Medication Instructions Recorded Confirmed coenzyme Q10 100 mg capsule 100 mg PO DAILY 11/14/19 12/29/21 lutein 6 mg capsule 6 mg PO DAILY 11/14/19 12/29/21 docusate sodium [Colace] 100 mg PO BID PRN 03/28/20 12/29/21 pravastatin 20 mg DAILY 01/30/21 12/29/21 ibuprofen 200 mg tablet 800 mg PO Q6H PRN tablet 03/06/21 12/29/21 ferrous sulfate 325 mg PO DAILY 12/29/21 12/29/21 Allergies Allergy/AdvReac Type Severity Reaction Status Date / Time Penicillins Allergy Unknown Unknown Verified 02/17/22 20:40 Review of Systems Review of Systems: CONSTITUTIONAL: Denies fever, chills, or sweats. EYES: Denies visual changes, redness, or discharge. ENT: Denies rhinorrhea, congestion, sore throat, or otalgia. CARDIOVASCULAR: Denies chest pain, palpitations, or edema. RESPIRATORY: Denies cough or dyspnea. GASTROINTESTINAL: Denies abdominal pain, nausea, vomiting, or diarrhea. GENITOURINARY: Denies dysuria or hematuria. SKIN: Denies rash or itching. MUSCULOSKELETAL: Denies back pain, joint pain, or myalgia. NEUROLOGIC: Denies headache, numbness, or weakness. PSYCHIATRIC: Denies anxiety or depression. [facility] Past Medical History Medical History Allergies Chronic atrial fibrillation (Unknown) Dementia without behavioral disturbance 01/30/19 Dyslipidemia (Unknown) Essential (primary) hypertension GERD without esophagitis Hx of bladder problems Hypertension Prostate disease Rosacea Stroke 09/2018 Unsteady gait Surgical History Surgical History No pertinent past surgical history Family History Family History Father Hypertension Family history of cardiovascular disease Mother Carcinoma of colon Social History Social History Social History: The patient is a DNR. Patient is and has 1 daughter. 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 The patient resides at [facility]. 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 The patient denied any alcohol, marijuana, or illicit drugs. Smoking status: Never smoker Second hand tobacco smoke exposure: No Alcohol intake: never Substance use: never Substance use type: does not use Gender identity (if verbalized by the patient): Male Spiritual care concerns: No Exam Narrative: APPEARANCE: Well appearing, no pain or distress, well-nourished. Head normocephalic and atraumatic. EYES: PERRLA/EOMI, conjunctivae very clear. NOSE: Normal with no drainage EARS:TMS clear Daniel Young, with good light reflex. THROAT: Pharynx clear, no exudate. NECK: Supple. No adenopathy, no masses. RESPIRATORY: Airway patent, respirations nonlabored. Clear to auscultation bilaterally, no rales, rhonchi, wheezing. CARDIOVASCULAR: Bradycardic rate in the 50s and irregular rhythm without murmurs, rubs, or gallops. ABDO
[2022-02-17 19:39] LABS: Basophils Absolute Auto 0.1 K/mm3 (0.0-0.1); Basophils Percent Auto 0.6 % (0.2-1.2); Eosinophils Absolute Auto 0.2 K/mm3 (0-0.3); Eosinophils Percent Auto 1.4 % (0-4.4); Hematocrit 39.6 % (42.0-52.0); Hemoglobin 12.2 g/dL (14.0-18.0); Immature Granulocyte Absolute 0.29 K/mm3 (0.00-0.031); Immature Granulocyte Percent A 2.3 % (0-0.5); Lymphocytes Percent Auto 10.3 % (18.3-44.2); Mean Corpuscular HGB Conc 30.8 g/dl (32-36); Mean Corpuscular Hemoglobin 31.8 pg (26-34); Mean Corpuscular Volume 103.1 fl (80-100); Mean Platelet Volume 8.9 fl (7.4-10.4); Monocytes Absolute Auto 1.3 K/mm3 (0.1-0.6); Monocytes Percent Auto 10.3 % (2.6-8.5); Neutrophils Absolute Auto 9.5 K/mm3 (1.3-6.7); Neutrophils Percent Auto 75.1 % (45.5-73.1); Platelet Count Result 269 k/mm3 (150-375); Red Blood Count 3.84 M/mm3 (4.6-6.20); Red Cell Distribution Width 13.4 % (11.5-14.5); White Blood Count 12.6 K/mm3 (4.5-10.0)
[2022-02-17 19:50] LABS: Alanine Aminotransferase 6 U/L (4-50); Albumin Level 3.5 g/dL (3.5-5.1); Alkaline Phosphatase 64 U/L (38-126); Anion Gap 6 mmol/L (8-16); Aspartate Amino Transferase 25 U/L (17-59); Bilirubin,Total 0.3 mg/dL (0.2-1.3); Blood Urea Nitrogen 16 mg/dL (9-20); Calcium 8.5 mg/dL (8.4-10.2); Carbon Dioxide 28 mmol/L (22-30); Chloride 103 mmol/L (98-107); Estimated Glomerular Filt Rate 58; Glucose 166 mg/dL (65-110); Lactic Acid Reflex 1.9 mmol/L (0.7-2.1); Sodium 137 mmol/L (137-145)
[2022-02-17 20:02] LABS: Troponin I < 0.012 ng/mL (0.000-0.034)
[2022-02-17 21:06] VITALS: BP 138/89; PULSE 82; RESP 16; O2SAT 97
[2022-02-17 21:16] VITALS: BP 145/78; PULSE 76; RESP 12; O2SAT 98
[2022-02-17] MEDS: SODIUM CHLORIDE 0.9% IV 1,000 ML 999 ML IV CONT (21:33)
--- NOTE | 2022-02-17 21:35 | PM.IMHP ---
H&P: HPI History of Present Illness Date/Time: 02/17/22 21:35 Chief Complaint: Near-syncope Narrative: This is a 81-year-old male with past medical history significant for Parkinson's, dementia, dyslipidemia, hypertension, atrial fibrillation rate controlled and anticoagulated, gastroesophageal reflux disease. Patient lives at assisted living facility and he is brought to the emergency room today after he was found in his bathroom barely arousable and was difficult to get him up. Most of the history has been obtained from daughter who is at bedside. Patient has been in his usual state of health he denies any fevers, rigors, chills, cough ,sputum production ,nausea ,vomiting, diarrhea, abdominal pain, shortness of breath, leg swelling. Preliminary workup was significant for left lower lobe infiltrate present in chest x-ray. Patient is being admitted for further evaluation management and treatment. Review of Systems Review of Systems: Altered mental status episode of unresponsiveness. Constitutional: Constitutional: Denies chills, Denies fatigue, Denies fever(s), Denies lethargy, Denies malaise, Denies night sweats, Denies poor appetite and Denies weakness Eyes: Eyes: Denies change in vision ENT: Denies dysphagia, Denies vertigo, Denies dizziness, Denies nasal congestion, Denies nasal discharge, Denies nasal obstruction and Denies odynophagia Cardiovascular: Cardiovascular: Denies pedal edema, Denies edema, Denies claudication, Denies leg edema, Denies lightheadedness, Denies radiating jaw, neck or arm pain, Denies palpitations, Denies dyspnea on exertion, Denies orthopnea and Denies paroxysmal nocturnal dyspnea Respiratory: Respiratory: Denies cough, Denies excessive phlegm production and Denies dyspnea Gastrointestinal: Gastrointestinal: Denies abdominal pain, Denies constipation, Denies dyspepsia, Denies heartburn, Denies diarrhea, Denies nausea and Denies vomiting Genitourinary: Genitourinary: Denies dysuria Musculoskeletal: Musculoskeletal: Denies arthralgias, Denies joint swelling and Denies muscle weakness Integumentary/Breasts: Skin/Breast: Denies rash Neurologic: Denies focal weakness and Denies Sensory deficit (Neuro) Psychiatric: Psychiatric: Reports no additional psychiatric complaints and Reports as per HPI Endocrine: Endocrine: Denies cold intolerance, Denies heat intolerance, Denies polyphagia, Denies polydipsia, Denies polyuria and Denies palpitations Hematologic/Lymphatic: Hematologic/Lymphatic: Reports no additional hematologic/lymphatic complaints and Reports as per HPI Allergic/Immunologic: Allergic/Immunologic: Reports no additional allergic/immunologic complaints and Reports as per HPI [facility] Past Medical History Medical History Allergies Chronic atrial fibrillation (Unknown) Dementia without behavioral disturbance 01/30/19 Dyslipidemia (Unknown) Essential (primary) hypertension GERD without esophagitis Hx of bladder problems Hypertension Prostate disease Rosacea Stroke 09/2018 Unsteady gait Surgical History Surgical History No pertinent past surgical history Family History Family History Father Hypertension Family history of cardiovascular disease Mother Carcinoma of colon Social History Social History Social History: The patient is a DNR. Patient is and has 1 daughter. He does not have a durable power health program specialist for healthcare. The patient resides at [facility]. 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 The patient denied any alcohol, marijuana, or illicit drugs. Smoking status: Never smoker Second hand tobacco smoke exposure: No Alcohol intake: never Substance use: never Substance use type: does not
[2022-02-17 21:45] LABS: Appearance Urine Clear (Clear); Bilirubin Urine Negative (Negative); Color Urine Yellow (Yellow); Glucose Urine UA Negative (Negative); Ketones Urine Negative (Negative); Leukocyte Esterase Ur Negative LEU/UL (Negative); Nitrate Urine Negative (Negative); Protein Urine Trace mg/dL (Negative); Urobilinogen Urine 0.2 mg/dL (<2.0); pH Urine 7.5 (5.0-9.0)
[2022-02-17 21:46] LABS: Add Urine Microscopic? YES; Blood Urine Trace-Intact (Negative)
[2022-02-17 21:47] LABS: Mucus Urine Rare /lpf; RBC Urine 0-2 /hpf (0-2); WBC Urine 0-3 /hpf
[2022-02-17 22:01] VITALS: BP 148/98; PULSE 93; RESP 21; O2SAT 94
[2022-02-17 22:16] VITALS: BP 164/96; PULSE 89; RESP 16
[2022-02-17 23:50] VITALS: BP 140/95; PULSE 86; RESP 16; O2SAT 98
[2022-02-18 00:15] VITALS: BP 139/90; PULSE 70; RESP 16; TEMP 36.1; O2SAT 98; BMI 31.8
[2022-02-18 06:00] VITALS: BP 154/89; PULSE 96; RESP 16; TEMP 36.1; O2SAT 97
[2022-02-18 08:29] VITALS: O2SAT 97
[2022-02-18] MEDS: DOXYCYCLINE 100 MG/NS 100 ML 100 MG/100 ML BAG IVPB (09:52)
[2022-02-18 09:53] VITALS: PULSE 103
[2022-02-18] MEDS: FERROUS SULFATE 324 MG TABLET PO (09:53)
[2022-02-18] MEDS: METOPROLOL TARTRATE 25 MG TABLET PO (09:53)
[2022-02-18] MEDS: FAMOTIDINE 20 MG TABLET PO ×2 (09:54→17:14)
[2022-02-18] MEDS: DONEPEZIL HCL 10 MG TABLET PO (09:54)
[2022-02-18] MEDS: CYANOCOBALAMIN 1,000 MCG TABLET 1000 MCG PO (09:54)
[2022-02-18] MEDS: PRAVASTATIN SODIUM 20 MG TABLET PO (09:54)
[2022-02-18] MEDS: MEMANTINE 5 MG TABLET PO (09:54)
--- NOTE | 2022-02-18 10:30 | PC.NURSE ---
Pt's daughter and POA, Hazel, called wanting an update. I answered her questions. Hazel stated that pt is wheelchair bound therefore he definitely should not be standing to urinate despite what pt claims. Hazel also stated that pt was diagnosed with dementia some time ago and recently had his meds changed to by the PCP to reflect a decline in orientation.
[2022-02-18 13:47] VITALS: BP 162/88; PULSE 65; RESP 16; TEMP 36.5; O2SAT 100
--- NOTE | 2022-02-18 14:55 | PM.DS ---
DS: Admitting Diagnosis Discharge Date 02/18/2022 Admitting Diagnosis Acute Encephalopathy Pneumonia DS: Discharge Diagnosis Discharge Diagnosis (1) Left lower lobe pneumonia: Code(s): J18.9 - Pneumonia, unspecified organism Status: Acute (2) Pneumonia: Qualifiers: Laterality: unspecified laterality Lung location: unspecified part of lung Pneumonia type: due to unspecified organism Qualified Code(s): J18.9 - Pneumonia, unspecified organism Code(s): J18.9 - Pneumonia, unspecified organism Status: Acute (3) Delirium due to general medical condition: Code(s): F05 - Delirium due to known physiological condition Status: Acute DS: Summary Hospital Course Hospital Course: 81-year-old male with past medical history significant for Parkinson's, dementia, dyslipidemia, hypertension, atrial fibrillation rate controlled and anticoagulated,was brought to the emergency room after he was found in his bathroom barely arousable and was difficult to get him up. Preliminary workup was significant for left lower lobe infiltrate present in chest x-ray. Patient was started on antibiotic. He quickly returned to his baseline mental status, he was not requiring ant O2 support. Was discharged back to assisted living on cefdinir and Doxycycline to complete total 7 day course of antibiotic. Status at Discharge Overall status at discharge: patient is progressing back to baseline Time Spent with Patient Time attestation: Total time spent providing and/or coordinating discharge services: Time spent: Greater than 30 minutes Exam Const: General: no acute distress HENMT: Mouth: Yes Abnormal oral and palatal mucosa present Eyes: Pupils: Equal, round and reactive pupils present Neck: Neck: supple Resp: Other: decreased breath sounds B/L, no added sounds Cardio: Rate: regular rate Rhythm: regular rhythm GI: GI Palp: Yes Soft to palpation and Yes Hernia present Auscultation: normal bowel sounds Skin: General skin exam: normal color Psych: Other: mental status at baseline DS: Data Data Completed and Pending Labs on day of discharge: Labs from last 24 hours 02/17/22 02/17/22 02/17/22 21:24 19:34 19:34 WBC RBC Hgb Hct MCV MCH MCHC RDW Plt Count MPV Immature Gran % (Auto) Neut % (Auto) Lymph % (Auto) [place] % (Auto) Eos % (Auto) Baso % (Auto) Lymph # (Auto) [place] # (Auto) Eos # (Auto) Baso # (Auto) Abs Immat Gran (auto) Absolute Neuts (auto) Absolute Nucleated RBC Nucleated RBC % Sodium Potassium Chloride Carbon Dioxide Anion Gap BUN Creatinine Estim Creat Clear Calc Estimated GFR Glucose Lactic Acid 1.9 Calcium Total Bilirubin AST ALT Alkaline Phosphatase Troponin I < 0.012 Total Protein Albumin Urine Color Yellow Urine Appearance Clear Urine pH 7.5 Ur Specific [place] 1.020 Urine Protein Trace Urine Glucose (UA) Negative Urine Ketones Negative Ur Blood (Man) Trace-intact Urine Nitrate Negative Urine Bilirubin Negative Urine Urobilinogen 0.2 Leukocyte Esterase Rfl Negative Urine RBC 0-2 Urine WBC 0-3 Hyaline Casts 1-2 Urine Mucus Rare 02/17/22 02/17/22 19:34 19:34 WBC 12.6 H RBC 3.84 L Hgb 12.2 L Hct 39.6 L MCV 103.1 H MCH 31.8 MCHC 30.8 L RDW 13.4 Plt Count 269 MPV 8.9 Immature Gran % (Auto) 2.3 H Neut % (Auto) 75.1 H Lymph % (Auto) 10.3 L [place] % (Auto) 10.3 H Eos % (Auto) 1.4 Baso % (Auto) 0.6 Lymph # (Auto) 1.30 [place] # (Auto) 1.3 H Eos # (Auto) 0.2 Baso # (Auto) 0.1 Abs Immat Gran (auto) 0.29 H Absolute Neuts (auto) 9.5 H Absolute Nucleated RBC 0.0 Nucleated RBC % 0.0 Sodium 137 Potassium 4.0 Chloride 103 Carbon Dioxide 28 Anion Gap 6 L BUN 16 Creatinine 1.20 Estim Creat Clear Calc Not Repo
[2022-02-18] MEDS: RIVAROXABAN 15 MG TABLET PO (17:14)
== END 2022-02-18 17:46 ==
LOC: ANHED 21:48 → ANH3MEDSUR 02-18 10:13
PROVIDERS: Admitting Provider Internal Medicine; Emergency Provider Emergency Medicine; PCP Family Medicine; Visit Provider Internal Medicine
DX: A41.9 Sepsis, unspecified organism (principal); J18.9 Pneumonia, unspecified organism; I48.20 Chronic atrial fibrillation, unspecified; I10 Essential (primary) hypertension; E78.5 Hyperlipidemia, unspecified; K43.9 Ventral hernia without obstruction or gangrene; K21.9 Gastro-esophageal reflux disease without esophagitis; G20 Parkinson's disease; F05 Delirium due to known physiological condition; F03.90 Unspecified dementia, unspecified severity, without behavioral disturbance, psychotic disturbance, mood disturbance, and anxiety; Z79.01 Long term (current) use of anticoagulants; Z86.73 Personal history of transient ischemic attack (TIA), and cerebral infarction without residual deficits
CPT/HCPCS: 36415; 51701; 71045; 80053; 81001; 83605; 84484; 85025; 87040; 93005; 96361; 96365; 96366; 96367; 96375; 97161; 97165; 99239; 99285; A9270; G0378; J0696; J1956; J7030

== ENCOUNTER 2022-03-14 02:02 | Emergency (ER) | payer MEDICARE, SELFPAY ==
[2022-03-14] VITALS (13 sets, daily range): BP systolic 76–149; BP diastolic 45–89; PULSE 46–94; RESP 10–20; TEMP 36.6; O2SAT 96–99
--- NOTE | ~2022-03-14 | XR_ITS ---
EXAMINATION: XR chest 1V portable INDICATION: Weakness TECHNIQUE: Portable AP chest at 0306 hours COMPARISON: 02/17/2022 FINDINGS: The lungs are free of acute opacities. There is no pleural effusion or pneumothorax. The ca rdiomediastinal silhouette is normal. There is osteoarthritis of the shoulders. IMPRESSION: 1. No acute cardiopulmonary abnormality. Reviewed, dictated and finalized at location A.
--- NOTE | ~2022-03-14 | CT_ITS ---
EXAMINATION: CT chest abdomen pelvis wo con DATE: 03/14/2022 03:09 INDICATION: Hypotension TECHNIQUE: Transaxial computed tomographic images of the chest, abdomen, and pelvis were obtained wit hout contrast. The dose-length product (DLP) was 1574.87 mGy-cm. Automated exposure control and itera tive reconstruction technique were employed. COMPARISON: None FINDINGS: CHEST CT: There is mild dependent atelectasis, right greater than left. There is a large hiatal hernia. No path ologically enlarged thoracic lymph nodes are identified. The heart size is normal. There is no pleura l effusion or pneumothorax. Calcified coronary artery atherosclerosis is noted. There is moderate tho racic spondylosis. ABDOMEN/PELVIS CT: There is hyperattenuating peritoneal fluid. There are peritoneal masses of the left abdomen which leela sure up to 3.7 x 3.2 cm. There is wall thickening of the distal descending colon. The liver, spleen, pancreas, and adrenal glands are normal. Stones are present in the nondistended gallbladder. Cysts of the left kidney measure up to 5.5 cm. The right kidney is unremarkable. There is no free intraperito lois gas or evidence of bowel obstruction. A moderate volume of colonic stool is present. The bladder is decompressed by Hardy catheter. There is a [place] ventral hernia containing nonobstructed larg e and small bowel and hemoperitoneum. There is severe lumbar spondylosis. IMPRESSION: 1. Hemoperitoneum with heterogeneous soft tissue masses in the left abdomen which appear to be the so urce of hemorrhage. Masses may reflect metastases. 2. Wall thickening of the descending colon which could reflect malignancy or colitis. Surgical evalua tion is recommended. 3. No acute abnormality of the chest. 4. Cholelithiasis without evidence of cholecystitis. Reviewed, dictated and finalized at location A. IMPRESSION: 1. Hemoperitoneum with heterogeneous soft tissue masses in the left abdomen whi ch appear to be the source of hemorrhage. Masses may reflect metastases. 2. Wall thickening of the descending colon which could reflect malignancy or co litis. Surgical evaluation is recommended. 3. No acute abnormality of the chest. 4. Cholelithiasis without evidence of cholecystitis.
--- NOTE | 2022-03-14 02:23 | ECG_ITS ---
Measurements Intervals [place] Rate: 52 P: -14 ID: [id number] QRS: 20 QRSD: 86 T: 41 QT: 486 QTc: 455 Interpretive Statements SINUS BRADYCARDIA POSSIBLE LEFT ATRIAL ENLARGEMENT EARLY PRECORDIAL R/S TRANSITION MINIMAL Q WAVES- HIGH LATERAL LEADS BORDERLINE ECG Electronically Signed On 03-14-2022 8:53:20 CDT by Feliciano Can D.O.
[2022-03-14 02:43] LABS: Basophils Absolute Auto 0.1 K/mm3 (0.0-0.1); Basophils Percent Auto 0.6 % (0.2-1.2); Eosinophils Absolute Auto 0.1 K/mm3 (0-0.3); Eosinophils Percent Auto 0.6 % (0-4.4); Hemoglobin 10.1 g/dL (14.0-18.0); Immature Granulocyte Absolute 0.66 K/mm3 (0.00-0.031); Immature Granulocyte Percent A 3.3 % (0-0.5); Lymphocytes Absolute Auto 1.57 K/mm3 (0.9-3.2); Lymphocytes Percent Auto 7.8 % (18.3-44.2); Mean Corpuscular HGB Conc 30.6 g/dl (32-36); Mean Corpuscular Hemoglobin 32.2 pg (26-34); Mean Corpuscular Volume 105.1 fl (80-100); Mean Platelet Volume 9.4 fl (7.4-10.4); Monocytes Absolute Auto 1.6 K/mm3 (0.1-0.6); Monocytes Percent Auto 8.1 % (2.6-8.5); Neutrophils Percent Auto 79.6 % (45.5-73.1); Platelet Count Result 235 k/mm3 (150-375); Red Blood Count 3.14 M/mm3 (4.6-6.20); Red Cell Distribution Width 13.7 % (11.5-14.5); White Blood Count 20.1 K/mm3 (4.5-10.0)
[2022-03-14 02:49] LABS: Alveolar/Arterial O2 Gradient 39.7 mmHg; Base Excess ABG -3.7 mEq/l (+/-2.0); Fractional Inspired Oxygen 21 %; HCO3 ABG 20.6 mEq/l (22.0-26.0); Oxygen Content ABG 13.8 %vol (16.0-22.0); Oxygen Saturation ABG 93.8 % (95.0-100.0); Oxyhemoglobin 92.4 % THb (90.0-100.0); PCO2 ABG 34.7 mmHg (35.0-45.0); PO2 ABG 68.5 mmHg (80.0-100.0); PO2 FiO2 Ratio Arterial Blood 3.26 %; Total Hemoglobin 10.6 g/dL (12.0-18.0); pH ABG 7.392 (7.350-7.450)
[2022-03-14] MEDS: SODIUM CHLORIDE 0.9% IV 1,000 ML 999 ML IV CONT ×2 (02:49→02:51)
[2022-03-14 02:53] LABS: INR 1.8; Prothrombin Time 20.3 Seconds (11.1-14.7)
[2022-03-14 02:54] LABS: Partial Thromboplastin Time 29.1 SECONDS (22.3-36.8)
[2022-03-14 02:58] LABS: Device ROOM AIR; Site Drawn RIGHT BRACHIAL
[2022-03-14 02:59] LABS: Alanine Aminotransferase 9 U/L (4-50); Albumin Level 2.6 g/dL (3.5-5.1); Alkaline Phosphatase 52 U/L (38-126); Anion Gap 5 mmol/L (8-16); Aspartate Amino Transferase 18 U/L (17-59); Bilirubin,Total 0.1 mg/dL (0.2-1.3); Blood Urea Nitrogen 21 mg/dL (9-20); CRP 0.6 mg/dL (<1.0); Calcium 7.6 mg/dL (8.4-10.2); Carbon Dioxide 26 mmol/L (22-30); Chloride 107 mmol/L (98-107); Estimated CRCL calculation 43 ml/min; Estimated Glomerular Filt Rate 45; Glucose 205 mg/dL (65-110); Lipase 121 U/L (23-300); Magnesium 2.1 mg/dL (1.6-2.3); Sodium 138 mmol/L (137-145)
[2022-03-14 03:08] LABS: NT Pro B Type Natriuretic Pept 424 pg/mL (5-100); Troponin I < 0.012 ng/mL (0.000-0.034)
[2022-03-14 03:09] LABS: Influenza A QL RT-PCR Positive (Negative); Influenza B QL RT-PCR Negative (Negative)
--- NOTE | 2022-03-14 03:26 | ED.GENADULT ---
HPI - General Adult General Chief complaint: Altered Mental Status Stated complaint: hypotension Time Seen by Provider: 03/14/22 02:10 History of Present Illness HPI narrative: Patient is a a 81-year-old gentleman who presents the emergency department with chief complaint of generalized weakness and malaise. The patient is at a local extended care facility and they noticed the patient was less responsive this evening. They called EMS and the patient was found to be hypotensive and was transported to the emergency department. The patient received IV fluids in route to the emergency department and was complaining of abdominal discomfort. The patient states that he is had no vomiting no diarrhea reports no chest pain or shortness of breath. Related Data Home Medications Medication Instructions Recorded Confirmed coenzyme Q10 100 mg capsule 100 mg PO DAILY 11/14/19 02/18/22 lutein 6 mg capsule 6 mg PO DAILY 11/14/19 02/18/22 docusate sodium [Colace] 100 mg PO BID PRN 03/28/20 02/18/22 carbidopa-levodopa tablet 03/14/22 03/14/22 cranberry extract [Cranberry mg 03/14/22 Concentrate] cyanocobalamin (vitamin B-12) mcg 03/14/22 donepezil mg 03/14/22 famotidine 03/14/22 ferrous sulfate [FeroSul] mg 03/14/22 memantine mg 03/14/22 metoprolol tartrate 03/14/22 pravastatin 03/14/22 quetiapine 03/14/22 rivaroxaban [Xarelto] mg 03/14/22 Allergies Allergy/AdvReac Type Severity Reaction Status Date / Time Penicillins Allergy Unknown Unknown Verified 03/14/22 03:42 Review of Systems Review of Systems: A 10 system review of systems was completed on the patient and is negative except for what is stated in the HPI. Nursing and ancillary documentation was reviewed. [facility] Past Medical History Medical History Allergies Chronic atrial fibrillation (Unknown) Dementia without behavioral disturbance 01/30/19 Dyslipidemia (Unknown) Essential (primary) hypertension GERD without esophagitis Hx of bladder problems Hypertension Prostate disease Rosacea Stroke 09/2018 Unsteady gait Surgical History Surgical History No pertinent past surgical history Family History Family History Father Hypertension Family history of cardiovascular disease Mother Carcinoma of colon Social History Social History Social History: The patient is a DNR. Patient is and has 1 daughter. He does not have a durable power state's attorney for healthcare. The patient resides at [facility]. 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 The patient denied any alcohol, marijuana, or illicit drugs. Smoking status: Never smoker Second hand tobacco smoke exposure: No Alcohol intake: never Substance use: never Substance use type: does not use Gender identity (if verbalized by the patient): Male Spiritual care concerns: No Exam Narrative: GENERAL: Well-appearing, well-nourished, and in no acute distress. HEAD: Normocephalic, atraumatic. EYES: PERRLA and EOMI. ENT: Nares clear, no rhinorrhea or epistaxis. Mucous membranes moist. NECK: Supple. CHEST: Clear to auscultation. No respiratory distress. HEART: Regular rate and rhythm. No murmur heard. Normal peripheral pulses. ABDOMEN: Soft, diffusely tender to palpation, nondistended, normal active bowel sounds. EXTREMITIES: Normal range of motion. No edema. SKIN: Warm, dry, no rash. NEURO: No focal deficits. Alert and oriented x3. PSYCH: Normal mood and affect. Course Course Emergency Course: CT scan showed evidence of hemoperitoneum present most likely consistent with a spontaneous hemorrhage. Currently the patient's vital signs are much improved Case was discussed with Dr. Ramos
[2022-03-14 03:29] LABS: SARS-CoV-2 RNA PCR Negative
[2022-03-14 03:37] LABS: Procalcitonin < 0.0 ng/mL
[2022-03-14] MEDS: SODIUM CHLORIDE 0.9% IV 3,100 ML/1,000 ML BAG 999 ML IV CONT (04:05)
[2022-03-14] MEDS: SODIUM CHLORIDE 0.9% IV 100 ML 999 ML (04:10)
--- NOTE | 2022-03-14 04:15 | PC.NURSE ---
2000ML OF NS WERE INFUSING BEFORE THE 3100ML BOLUS ORDER WAS CREATED. PT WILL RECEIVE 3100ML TOTAL OF NS ORDERED
[2022-03-14 04:29] LABS: Appearance Urine Clear (Clear); Bilirubin Urine Negative (Negative); Blood Urine 1+ (Negative); Color Urine Yellow (Yellow); Glucose Urine UA Negative (Negative); Ketones Urine Negative (Negative); Leukocyte Esterase Ur Negative LEU/UL (Negative); Nitrate Urine Negative (Negative); Protein Urine 2+ mg/dL (Negative)
[2022-03-14 04:36] LABS: Add Urine Microscopic? YES; Bacteria Urine Trace /hpf; Calcium Oxalate Crystals Urine Present /hpf; Hyaline Casts Urine 50+ /lpf; Mucus Urine Few /lpf; RBC Urine 21-50 /hpf (0-2); Squamous Epithelial Cell Urine Moderate /hpf (Few)
[2022-03-14 05:41] LABS: Reflex Lactic Acid Yes or No Add Lactic
[2022-03-14 06:08] LABS: Lactic Acid 2.6 mmol/L (0.7-2.0)
[2022-03-14 06:20] LABS: Troponin I < 0.012 ng/mL (0.000-0.034)
[2022-03-14 07:18] LABS: Hematocrit 31.3 % (42.0-52.0); Hemoglobin 9.5 g/dL (14.0-18.0)
--- NOTE | 2022-03-14 07:29 | PC.NURSE ---
Daughter called and was updated. She will be on her way up within the hour.
--- NOTE | 2022-03-14 07:39 | PC.NURSE ---
Lyle Ems accepted transfer to [facility] Melinda and Emily GARCIA 15min Trip # [id number]
--- NOTE | 2022-03-14 07:46 | PC.NURSE ---
Report called to [facility] ER
[2022-03-14] MEDS: SODIUM CHLORIDE 0.9% IV 1,000 ML 100 ML IV CONT (07:49)
--- NOTE | 2022-03-14 08:05 | PC.NURSE ---
pt transferred to [facility] with IVF infusing
== END 2022-03-14 08:05 | disposition short-term general hospital (02) ==
PROVIDERS: Emergency Provider Emergency Medicine; PCP Family Medicine
DX: J10.1 Influenza due to other identified influenza virus with other respiratory manifestations (principal); K66.1 Hemoperitoneum; Z20.822 Contact with and (suspected) exposure to COVID-19; I48.20 Chronic atrial fibrillation, unspecified; F03.90 Unspecified dementia, unspecified severity, without behavioral disturbance, psychotic disturbance, mood disturbance, and anxiety; I10 Essential (primary) hypertension; E78.5 Hyperlipidemia, unspecified; N42.9 Disorder of prostate, unspecified; K21.9 Gastro-esophageal reflux disease without esophagitis; Z86.73 Personal history of transient ischemic attack (TIA), and cerebral infarction without residual deficits; Z79.01 Long term (current) use of anticoagulants; Z66 Do not resuscitate; R00.1 Bradycardia, unspecified; R94.31 Abnormal electrocardiogram [ECG] [EKG]; K80.20 Calculus of gallbladder without cholecystitis without obstruction; R19.00 Intra-abdominal and pelvic swelling, mass and lump, unspecified site
CPT/HCPCS: 36415; 36600; 51702; 71045; 71250; 74176; 80053; 81001; 82805; 83605; 83690; 83735; 83880; 84145; 84484; 85014; 85018; 85025; 85610; 85730; 86140; 86850; 86900; 86901; 87040; 87502; 93005; 96360; 96361; 99285; C9803; J7030; U0003; U0005

== ENCOUNTER 2022-04-10 17:37 | Emergency (ER) | payer MEDICARE, SELFPAY ==
[2022-04-10] VITALS (10 sets, daily range): BP systolic 103–162; BP diastolic 67–135; PULSE 68–87; RESP 18–22; TEMP 36.4; O2SAT 97–98
--- NOTE | ~2022-04-10 | XR_ITS ---
EXAMINATION: XR chest 2V Exam Date/Time: 04/10/2022 18:14 CDT HISTORY: AMS,WEAKNESS, HX A.FIB, HTN,STROKE Comparison: X-ray chest 03/28/2020 and 03/14/2022. RESULT: Lines, tubes, and devices: None. Lungs and pleura: Bilateral posterior costophrenic angle blunting. Senescent change. Cardiomediastinal silhouette: Stable cardiomediastinal silhouette. Other: No acute osseous or upper abdominal finding. IMPRESSION: Small bilateral pleural effusions. Reviewed, dictated and finalized at location K.
--- NOTE | 2022-04-10 17:41 | ECG_ITS ---
Measurements Intervals [place] Rate: 68 P: -8 ND: 148 QRS: 24 QRSD: 88 T: 47 QT: 420 QTc: 448 Interpretive Statements SINUS RHYTHM POSSIBLE LEFT ATRIAL ENLARGEMENT COMPARED TO THE PRIOR TRACING, THE PATIENT IS NO LONGER BRADYCARDIC Electronically Signed On 04-11-2022 8:53:20 CDT by Kelli Jim M.D.
[2022-04-10 17:54] LABS: Basophils Absolute Auto 0.1 K/mm3 (0.0-0.1); Basophils Percent Auto 0.8 % (0.2-1.2); Eosinophils Absolute Auto 0.6 K/mm3 (0-0.3); Eosinophils Percent Auto 6.9 % (0-4.4); Hemoglobin 9.5 g/dL (14.0-18.0); Immature Granulocyte Absolute 0.15 K/mm3 (0.00-0.031); Immature Granulocyte Percent A 1.7 % (0-0.5); Lymphocytes Percent Auto 11.1 % (18.3-44.2); Mean Corpuscular HGB Conc 30.6 g/dl (32-36); Mean Corpuscular Hemoglobin 30.7 pg (26-34); Mean Corpuscular Volume 100.3 fl (80-100); Mean Platelet Volume 8.9 fl (7.4-10.4); Monocytes Absolute Auto 1.4 K/mm3 (0.1-0.6); Neutrophils Absolute Auto 5.8 K/mm3 (1.3-6.7); Neutrophils Percent Auto 64.5 % (45.5-73.1); Platelet Count Result 274 k/mm3 (150-375); Red Blood Count 3.09 M/mm3 (4.6-6.20); Red Cell Distribution Width 15.5 % (11.5-14.5)
[2022-04-10 18:07] LABS: Lactic Acid Reflex 1.3 mmol/L (0.7-2.0)
[2022-04-10 18:08] LABS: INR 1.1; Prothrombin Time 14.1 Seconds (11.1-14.7)
[2022-04-10 18:09] LABS: Partial Thromboplastin Time 26.1 SECONDS (22.3-36.8)
[2022-04-10 18:10] LABS: Appearance Urine Clear (Clear); Bilirubin Urine Negative (Negative); Blood Urine Negative (Negative); Color Urine Yellow (Yellow); Glucose Urine UA Negative (Negative); Ketones Urine Trace mg/dL (Negative); Leukocyte Esterase Ur Negative LEU/UL (Negative); Nitrate Urine Negative (Negative); Protein Urine 2+ mg/dL (Negative); Specific Grav Ur 1.025 (1.001-1.035); Urobilinogen Urine 0.2 mg/dL (<2.0)
[2022-04-10 18:11] LABS: Albumin Level 3.1 g/dL (3.5-5.1); Alkaline Phosphatase 77 U/L (38-126); Anion Gap 4 mmol/L (8-16); Aspartate Amino Transferase 22 U/L (17-59); Bilirubin,Total 0.4 mg/dL (0.2-1.3); Blood Urea Nitrogen 13 mg/dL (9-20); CRP 1.3 mg/dL (<1.0); Carbon Dioxide 26 mmol/L (22-30); Chloride 106 mmol/L (98-107); Estimated CRCL calculation 62 ml/min; Estimated Glomerular Filt Rate > 60; Glucose 119 mg/dL (65-110); Potassium 3.5 mmol/L (3.4-5.0); Sodium 136 mmol/L (137-145)
[2022-04-10 18:15] LABS: Bacteria Urine Trace /hpf; Mucus Urine Few /lpf; WBC Urine 0-3 /hpf
[2022-04-10 18:16] LABS: Add Urine Microscopic? YES
[2022-04-10 18:30] LABS: Alanine Aminotransferase < 6 U/L (6-50)
--- NOTE | 2022-04-10 19:17 | ED.GENADULT ---
HPI - General Adult General Chief complaint: Altered Mental Status Stated complaint: confusion from [place] Time Seen by Provider: 04/10/22 17:45 History of Present Illness HPI narrative: Patient is a 81-year-old male who presents ER with decreased responsiveness. [facility] when he became more confused. EMS found him to be hypotensive. On arrival here patient is awake alert and oriented x1 which seems to be his baseline. Patient has no complaints. He does have documented history of dementia. Related Data Home Medications Medication Instructions Recorded Confirmed coenzyme Q10 100 mg capsule 100 mg PO DAILY 11/14/19 02/18/22 (CoQ-10) lutein 6 mg capsule 6 mg PO DAILY 11/14/19 02/18/22 docusate sodium 100 mg capsule 100 mg PO BID PRN Constipation 03/28/20 02/18/22 (Colace) carbidopa 25 mg-levodopa 100 mg tablet 03/14/22 03/14/22 tablet cranberry extract 500 mg capsule mg 03/14/22 (Cranberry Concentrate) cyanocobalamin (vitamin B-12) mcg 03/14/22 1,000 mcg tablet donepezil 10 mg tablet mg 03/14/22 famotidine 20 mg tablet 03/14/22 ferrous sulfate 325 mg (65 mg mg 03/14/22 iron) tablet (FeroSul) memantine 10 mg tablet mg 03/14/22 metoprolol tartrate 25 mg tablet 03/14/22 pravastatin 20 mg tablet 03/14/22 quetiapine 25 mg tablet 03/14/22 rivaroxaban 15 mg tablet (Xarelto) mg 03/14/22 Allergies Allergy/AdvReac Type Severity Reaction Status Date / Time Penicillins Allergy Unknown Unknown Verified 04/10/22 18:20 Review of Systems Review of Systems: ROS unobtainable: Yes unobtainable due to mental status [facility] Past Medical History Medical History Allergies Chronic atrial fibrillation (Unknown) Dementia without behavioral disturbance 01/30/19 Dyslipidemia (Unknown) Essential (primary) hypertension GERD without esophagitis Hx of bladder problems Hypertension Prostate disease Rosacea Stroke 09/2018 Unsteady gait Surgical History Surgical History No pertinent past surgical history Family History Family History Father Hypertension Family history of cardiovascular disease Mother Carcinoma of colon Social History Social History Social History: The patient is a DNR. Patient is and has 1 daughter. He does not have a durable power patent attorney for healthcare. The patient resides at [facility]. 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 The patient denied any alcohol, marijuana, or illicit drugs. Smoking status: Never smoker Second hand tobacco smoke exposure: No Alcohol intake: never Substance use: never Substance use type: does not use Gender identity (if verbalized by the patient): Male Spiritual care concerns: No Exam Narrative: GENERAL: Well-appearing, well-nourished, and in no acute distress. HEAD: Normocephalic, atraumatic. EYES: PERRL and EOMI. ENT: Mucous membranes moist. CHEST: Clear to auscultation. No respiratory distress. HEART: Regular rate and rhythm. No murmur heard. Normal peripheral pulses. ABDOMEN: Soft, nontender, nondistended, normal active bowel sounds. EXTREMITIES: Normal range of motion. No edema. SKIN: Warm, dry, no rash. NEURO: No focal deficits. Alert and oriented x3. PSYCH: Normal mood and affect. Course Course Emergency Course: Blood pressure improved with fluids. Slight drop in orthostatics from 1 50-1 40 after hydration but patient asymptomatic. Labs unremarkable. Will discharge back to prison. Vital Signs Vital signs: Vital Signs Temperature 97.6 F 04/10/22 17:26 Pulse Rate 68 04/10/22 17:26 Respiratory Rate 18 04/10/22 17:26 Blood Pressure 103/67 04/10/22 17:26 Pulse O
--- NOTE | 2022-04-10 19:21 | PC.NURSE ---
Assumed care of pt at this time. Pt A&Ox3, upright on stretcher. Updated on POC.
--- NOTE | 2022-04-10 21:02 | PC.NURSE ---
called [facility] to request transport. ETA midnight [facility], [facility], and [facility]. declined
--- NOTE | 2022-04-10 21:29 | PC.NURSE ---
This RN noted pt to have brief episode of increased HR (130s bpm). RN entered room. Pt A&Ox3, resting on stretcher. Asymptomatic. EDP Scout made aware, no new orders, okayed for discharge. Pt now noted to be in NSR on monitor.
[2022-04-11 00:11] VITALS: BP 109/79; PULSE 66; RESP 16; O2SAT 96
--- NOTE | 2022-04-11 00:16 | PC.NURSE ---
called [facility] for ETA update. ETA [id number]
--- NOTE | 2022-04-11 00:26 | PC.NURSE ---
called [facility] to request transport. [facility] accepted, ETA 1hour and 15 mnutes.
--- NOTE | 2022-04-11 00:28 | PC.NURSE ---
cancelled [facility].
[2022-04-11 02:14] VITALS: BP 128/76; PULSE 98; RESP 22; O2SAT 96
== END 2022-04-11 02:16 ==
PROVIDERS: Emergency Provider Emergency Medicine; PCP Family Medicine
DX: R55 Syncope and collapse (principal); F03.90 Unspecified dementia, unspecified severity, without behavioral disturbance, psychotic disturbance, mood disturbance, and anxiety; I48.20 Chronic atrial fibrillation, unspecified; E78.5 Hyperlipidemia, unspecified; I10 Essential (primary) hypertension; K21.9 Gastro-esophageal reflux disease without esophagitis; N42.9 Disorder of prostate, unspecified; Z86.73 Personal history of transient ischemic attack (TIA), and cerebral infarction without residual deficits; Z66 Do not resuscitate; R94.31 Abnormal electrocardiogram [ECG] [EKG]
CPT/HCPCS: 36415; 51701; 71046; 80053; 81001; 83605; 85025; 85610; 85730; 86140; 87040; 93005; 99283

== ENCOUNTER 2022-07-21 20:42 | Emergency (ER) | payer MEDICARE, SELFPAY ==
--- NOTE | ~2022-07-21 | CT_ITS ---
EXAMINATION: CT brain wo con DATE: 07/21/2022 21:15 INDICATION: fall, on thinners . TECHNIQUE: Computed tomography (CT) of the head was performed without intravenous contrast. The mA wa s adjusted according to patient size. Iterative reconstruction technique was employed. The dose-lengt h product was 681.00 mGy-cm. COMPARISON: 12/29/2021 FINDINGS: No acute intracranial hemorrhage or extra-axial fluid collection. No hydrocephalus, mass, or herniation. No acute ischemic infarct. Unremarkable dural venous sinus attenuation. No acute osseous abnormality. The aerated spaces are clear. Severe central atrophy. Moderate chronic white matter change. Atherosclerotic intracranial calcificat ion. Bilateral lens replacements. IMPRESSION: No acute intracranial process. Reviewed, dictated and finalized at location K.
--- NOTE | ~2022-07-21 | CT_ITS ---
EXAMINATION: CT cervical spine wo con DATE: 07/21/2022 21:24 INDICATION: trauma, fall on thinners TECHNIQUE: Computed tomography (CT) of the cervical spine was performed without intravenous contrast. Automated exposure control and iterative reconstruction technique were employed. The dose-length pro duct was 554.34 mGy-cm. COMPARISON: 01/30/2021 FINDINGS: Vertebral Body Alignment: Trace anterolisthesis of C4 on C5, otherwise intact.. Craniocervical and atlantoaxial alignment: Moderate degenerative change. Alignment intact. Osseous structures/fracture: No evidence of a lytic or blastic process in the visualized spine. No e vidence of acute fracture. Stable mild anterior wedge deformity at T3. Cervical soft tissues: The paraspinal soft tissues planes are maintained. Stable left upper lung nodu le, likely granuloma. Degenerative changes: Multilevel severe degenerative disc disease and facet arthropathy. Multilevel s evere bilateral neural foraminal narrowing. At least moderate central canal narrowing at C5-6. IMPRESSION: No acute fracture or traumatic malalignment in the cervical spine. Reviewed, dictated and finalized at location K.
[2022-07-21 20:38] VITALS: PULSE 53; RESP 18; TEMP 36.4; O2SAT 95
--- NOTE | 2022-07-21 21:00 | ECG_ITS ---
Measurements Intervals [place] Rate: 60 P: 6 GA: 164 QRS: 9 QRSD: 92 T: 37 QT: 437 QTc: 438 Interpretive Statements SINUS RHYTHM BASELINE ARTIFACT- I, II, III, AVR, AVL, AVF NORMAL ECG COMPARED TO ECG 04/10/2022 17:37:26 NO SIGNIFICANT CHANGES Electronically Signed On 07-21-2022 21:45:00 CDT by Feliciano Can D.O.
--- NOTE | 2022-07-21 21:06 | ED.GENADULT ---
HPI - General Adult General Chief complaint: Fall Stated complaint: GLF; HYPOTENSIVE Time Seen by Provider: 07/21/22 20:53 History of Present Illness HPI narrative: Patient 82-year-old gentleman who presents emergency department with chief complaint of fall. The patient reports he was sitting on the toilet and had a episode where he fell off the toilet. Patient reports no loss of consciousness at the residential staff reports that he was hypotensive when this occurred the patient currently states that he has no complaints other facility was concerned because he fell and was on blood thinners Xarelto. Patient denies chest pain denies shortness of breath denies pain in his arms or legs. Patient denies focal neurological deficit the patient states that he has no pain on the right side of his body area where he struck himself. Related Data Home Medications Medication Instructions Recorded Confirmed coenzyme Q10 100 mg capsule 100 mg PO DAILY 11/14/19 02/18/22 (CoQ-10) lutein 6 mg capsule 6 mg PO DAILY 11/14/19 02/18/22 docusate sodium 100 mg capsule 100 mg PO BID PRN Constipation 03/28/20 02/18/22 (Colace) carbidopa 25 mg-levodopa 100 mg tablet 03/14/22 03/14/22 tablet cranberry extract 500 mg capsule mg 03/14/22 (Cranberry Concentrate) donepezil 10 mg tablet mg 03/14/22 famotidine 20 mg tablet 03/14/22 ferrous sulfate 325 mg (65 mg mg 03/14/22 iron) tablet (FeroSul) memantine 10 mg tablet mg 03/14/22 metoprolol tartrate 25 mg tablet 03/14/22 pravastatin 20 mg tablet 03/14/22 quetiapine 25 mg tablet 03/14/22 rivaroxaban 15 mg tablet (Xarelto) mg 03/14/22 Allergies Allergy/AdvReac Type Severity Reaction Status Date / Time Penicillins Allergy Unknown Unknown Verified 04/10/22 18:20 Review of Systems Review of Systems: A 10 system review of systems was completed on the patient and is negative except for what is stated in the HPI. Nursing and ancillary documentation was reviewed. [facility] Past Medical History Medical History Allergies Chronic atrial fibrillation (Unknown) Dementia without behavioral disturbance 01/30/19 Dyslipidemia (Unknown) Essential (primary) hypertension GERD without esophagitis Hx of bladder problems Hypertension Prostate disease Rosacea Stroke 09/2018 Unsteady gait Surgical History Surgical History No pertinent past surgical history Family History Family History Father Hypertension Family history of cardiovascular disease Mother Carcinoma of colon Social History Social History Social History: The patient is a DNR. Patient is and has 1 daughter. He does not have a durable power insurance attorney for healthcare. The patient resides at [facility]. 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 The patient denied any alcohol, marijuana, or illicit drugs. Smoking status: Never smoker Second hand tobacco smoke exposure: No Alcohol intake: never Substance use: never Substance use type: does not use Gender identity (if verbalized by the patient): Male Spiritual care concerns: No Exam Narrative: GENERAL: Well-appearing, well-nourished, and in no acute distress. HEAD: Normocephalic, atraumatic. EYES: PERRLA and EOMI. ENT: Nares clear, no rhinorrhea or epistaxis. Mucous membranes moist. NECK: Supple. CHEST: Clear to auscultation. No respiratory distress. HEART: Regular rate and rhythm. No murmur heard. Normal peripheral pulses. ABDOMEN: Soft, nontender, nondistended, normal active bowel sounds. EXTREMITIES: Normal range of motion. No edema. SKIN: Warm, dry, no rash. NEURO: No focal deficits. Alert and oriented x2 which is his baseline. PSYCH: Norm
[2022-07-21 21:11] LABS: Glucose Point of Care 93 mg/dl (65-105)
[2022-07-21 21:38] LABS: Basophils Absolute Auto 0.1 K/mm3 (0.0-0.1); Basophils Percent Auto 0.7 % (0.2-1.2); Eosinophils Absolute Auto 1.2 K/mm3 (0-0.3); Eosinophils Percent Auto 9.9 % (0-4.4); Hematocrit 40.1 % (42.0-52.0); Hemoglobin 12.6 g/dL (14.0-18.0); Immature Granulocyte Absolute 0.15 K/mm3 (0.00-0.031); Immature Granulocyte Percent A 1.3 % (0-0.5); Lymphocytes Absolute Auto 1.29 K/mm3 (0.9-3.2); Lymphocytes Percent Auto 10.8 % (18.3-44.2); Mean Corpuscular HGB Conc 31.4 g/dl (32-36); Mean Corpuscular Hemoglobin 30.4 pg (26-34); Mean Corpuscular Volume 96.6 fl (80-100); Monocytes Absolute Auto 1.6 K/mm3 (0.1-0.6); Monocytes Percent Auto 13.4 % (2.6-8.5); Neutrophils Absolute Auto 7.7 K/mm3 (1.3-6.7); Neutrophils Percent Auto 63.9 % (45.5-73.1); Platelet Count Result 199 k/mm3 (150-375); Red Blood Count 4.15 M/mm3 (4.6-6.20); Red Cell Distribution Width 15.7 % (11.5-14.5)
[2022-07-21 21:49] LABS: Alanine Aminotransferase 8 U/L (6-50); Albumin Level 3.7 g/dL (3.5-5.1); Alkaline Phosphatase 77 U/L (38-126); Anion Gap 11 mmol/L (8-16); Aspartate Amino Transferase 18 U/L (17-59); Bilirubin,Total 0.3 mg/dL (0.2-1.3); Blood Urea Nitrogen 15 mg/dL (9-20); Calcium 9.1 mg/dL (8.4-10.2); Carbon Dioxide 25 mmol/L (22-30); Chloride 103 mmol/L (98-107); Estimated Glomerular Filt Rate 45; Glucose 96 mg/dL (65-110); Magnesium 2.4 mg/dL (1.6-2.3); Potassium 3.7 mmol/L (3.4-5.0); Sodium 139 mmol/L (137-145)
--- NOTE | 2022-07-22 00:32 | PC.NURSE ---
called [facility] to request transport. ETA 30 minutes
[2022-07-22 00:41] VITALS: BP 108/70; PULSE 61; RESP 20; O2SAT 95
[2022-07-22 00:43] VITALS: BP 108/70; PULSE 67; RESP 20; O2SAT 97
--- NOTE | 2022-07-22 01:29 | PC.NURSE ---
[facility] here.
== END 2022-07-22 01:42 ==
PROVIDERS: Emergency Provider Emergency Medicine; PCP Family Medicine
DX: Z04.3 Encounter for examination and observation following other accident (principal); F03.90 Unspecified dementia, unspecified severity, without behavioral disturbance, psychotic disturbance, mood disturbance, and anxiety; I48.20 Chronic atrial fibrillation, unspecified; I10 Essential (primary) hypertension; N42.9 Disorder of prostate, unspecified; K21.9 Gastro-esophageal reflux disease without esophagitis; Z86.73 Personal history of transient ischemic attack (TIA), and cerebral infarction without residual deficits; Z79.01 Long term (current) use of anticoagulants; Z66 Do not resuscitate; W18.11XA Fall from or off toilet without subsequent striking against object, initial encounter
CPT/HCPCS: 36415; 70450; 72125; 80053; 82948; 83735; 85025; 93005; 99284

== ENCOUNTER 2022-10-15 22:08 | Emergency (ER) | payer MEDICARE, SELFPAY ==
--- NOTE | ~2022-10-15 | XR_ITS ---
EXAMINATION: XR chest 2V DATE: 10/15/2022 23:28 INDICATION: Syncope TECHNIQUE: frontal and lateral views of the chest were obtained. COMPARISON: Chest radiograph and CT dated 03/14/2022 FINDINGS: Retrocardiac opacity corresponding to a large hiatal hernia on prior CT with associated adjacent comp ressive atelectasis. No other airspace opacities, pulmonary edema, pleural effusion or pneumothorax. The cardiomediastinal silhouette is normal. Lumbar dextroscoliosis with severe spondylosis. IMPRESSION: 1. No acute cardiopulmonary disease. 2. Large hiatal hernia. Reviewed, dictated and finalized at location A. STARCH OPERATOR
[2022-10-15 22:09] VITALS: BP 149/74; PULSE 64; RESP 14; TEMP 36.4; O2SAT 96
--- NOTE | 2022-10-15 22:13 | ECG_ITS ---
Measurements Intervals [place] Rate: 57 P: 30 AR: 182 QRS: 30 QRSD: 90 T: 49 QT: 442 QTc: 434 Interpretive Statements SINUS BRADYCARDIA OTHERWISE WITHIN NORMAL LIMITS COMPARED TO ECG 07/21/2022 21:44:29 SINUS BRADYCARDIA NOW PRESENT Electronically Signed On 10-16-2022 8:34:17 SHOP SUPERINTENDENT by Stanley Pehlps M.D.
--- NOTE | 2022-10-15 22:21 | ED.AMS ---
HPI - Altered Mental Status General Chief Complaint: Altered Mental Status Stated Complaint: AMS, LETHARGY Time Seen by Provider: 10/15/22 22:11 History of Present Illness HPI narrative: Patient is an 82-year-old male who presents ER with concerns for confusion. Patient is using [facility] at [facility] when he became weak and could not get up. Staff reported patient was acutely altered. Patient oriented x2 at baseline has known dementia. Patient has no complaints at this time but is again demented. Related Data Home Medications Medication Instructions Recorded Confirmed coenzyme Q10 100 mg capsule 100 mg PO DAILY 11/14/19 02/18/22 (CoQ-10) lutein 6 mg capsule 6 mg PO DAILY 11/14/19 02/18/22 docusate sodium 100 mg capsule 100 mg PO BID PRN Constipation 03/28/20 02/18/22 (Colace) cranberry extract 500 mg capsule mg 03/14/22 (Cranberry Concentrate) albuterol sulfate 90 mcg/actuation 2 puff inhalation Q4H PRN 08/18/22 aerosol inhaler aspirin 81 mg chewable tablet 81 mg PO DAILY 08/18/22 atorvastatin 10 mg tablet 10 mg PO DAILY 08/18/22 carbidopa ER 25 mg-levodopa 100 mg 1 tablet PO TID 08/18/22 tablet,extended release clotrimazole-betamethasone 1 1 applic topical BID 08/18/22 %-0.05 % topical cream donepezil 10 mg tablet 10 mg PO DAILY 08/18/22 famotidine 20 mg tablet 20 mg PO DAILY 08/18/22 ferrous sulfate 325 mg (65 mg 325 mg PO BID 08/18/22 iron) tablet (FeroSul) memantine 10 mg tablet 10 mg PO BID 08/18/22 metoprolol tartrate 25 mg tablet 12.5 mg PO BID 08/18/22 nystatin 100,000 unit/gram topical 1 applic topical BID 08/18/22 powder quetiapine 25 mg tablet 25 mg PO QHS 08/18/22 Allergies Allergy/AdvReac Type Severity Reaction Status Date / Time Penicillins Allergy Unknown Unknown Verified 08/18/22 14:22 Review of Systems Review of Systems: ROS unobtainable: Yes unobtainable due to mental status PMFSH Past Medical History Medical History Allergies Chronic atrial fibrillation (Unknown) Dementia without behavioral disturbance 01/30/19 Dyslipidemia (Unknown) Essential (primary) hypertension GERD without esophagitis Hx of bladder problems Hypertension Prostate disease Rosacea Stroke 09/2018 Unsteady gait Surgical History Surgical History No pertinent past surgical history Family History Family History Father Hypertension Family history of cardiovascular disease Mother Carcinoma of colon Social History Social History Social History: The patient is a DNR. Patient is and has 1 daughter. He does not have a durable power deputy commonwealth's attorney for healthcare. The patient resides at [facility]. 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 The patient denied any alcohol, marijuana, or illicit drugs. Smoking status: Never smoker Second hand tobacco smoke exposure: No Alcohol intake: never Substance use: never Substance use type: does not use Gender identity (if verbalized by the patient): Male Spiritual care concerns: No Exam Narrative: GENERAL: Well-appearing, well-nourished, and in no acute distress. HEAD: Normocephalic, atraumatic. EYES: PERRL and EOMI. ENT: Mucous membranes moist. CHEST: Clear to auscultation. No respiratory distress. HEART: Bradycardic and regular. Normal peripheral pulses. ABDOMEN: Soft, nontender, nondistended. EXTREMITIES: Normal range of motion. No edema. SKIN: Warm, dry, no rash. NEURO: Alert and oriented x2. PSYCH: Normal mood and affect. Course Course Emergency Course: Patient unable to stand up to perform orthostatic vital signs but this is his baseline. Confirmed with [facility]pc the patient does not ambulate normally uses a wheelchair. Labs unremarkable. It is
[2022-10-15 22:49] VITALS: BP 183/108; PULSE 59
[2022-10-15 22:50] VITALS: BP 190/122; PULSE 63
[2022-10-15 23:13] LABS: Basophils Absolute Auto 0.1 K/mm3 (0.0-0.1); Basophils Percent Auto 0.9 % (0.2-1.2); Eosinophils Absolute Auto 0.3 K/mm3 (0-0.3); Eosinophils Percent Auto 2.5 % (0-4.4); Hematocrit 42.7 % (42.0-52.0); Hemoglobin 13.6 g/dL (14.0-18.0); Immature Granulocyte Absolute 0.42 K/mm3 (0.00-0.031); Immature Granulocyte Percent A 3.8 % (0-0.5); Lymphocytes Absolute Auto 1.08 K/mm3 (0.9-3.2); Lymphocytes Percent Auto 9.7 % (18.3-44.2); Mean Corpuscular HGB Conc 31.9 g/dl (32-36); Mean Corpuscular Hemoglobin 31.9 pg (26-34); Mean Platelet Volume 9.3 fl (7.4-10.4); Monocytes Absolute Auto 1.6 K/mm3 (0.1-0.6); Monocytes Percent Auto 14.6 % (2.6-8.5); Neutrophils Absolute Auto 7.6 K/mm3 (1.3-6.7); Neutrophils Percent Auto 68.5 % (45.5-73.1); Platelet Count Result 199 k/mm3 (150-375); Red Blood Count 4.27 M/mm3 (4.6-6.20); Red Cell Distribution Width 13.9 % (11.5-14.5); White Blood Count 11.1 K/mm3 (4.5-10.0)
[2022-10-15 23:23] LABS: Alanine Aminotransferase 11 U/L (6-50); Alkaline Phosphatase 84 U/L (38-126); Anion Gap 5 mmol/L (8-16); Aspartate Amino Transferase 21 U/L (17-59); Bilirubin,Total 0.5 mg/dL (0.2-1.3); Blood Urea Nitrogen 17 mg/dL (9-20); Calcium 8.9 mg/dL (8.4-10.2); Carbon Dioxide 31 mmol/L (22-30); Chloride 105 mmol/L (98-107); Estimated Glomerular Filt Rate 53; Glucose 101 mg/dL (65-110); Partial Thromboplastin Time 23.9 SECONDS (22.3-36.8); Potassium 4.1 mmol/L (3.4-5.0); Prothrombin Time 12.4 Seconds (11.1-14.7); Sodium 141 mmol/L (137-145)
--- NOTE | 2022-10-16 01:05 | PC.NURSE ---
Patient able to transfer self to wheelchair.
[2022-10-16 01:17] VITALS: BP 167/91; PULSE 60; RESP 18; TEMP 36.8; O2SAT 99
== END 2022-10-16 03:30 ==
PROVIDERS: Emergency Provider Emergency Medicine; PCP Nurse Practitioner Family
DX: R55 Syncope and collapse (principal); I48.20 Chronic atrial fibrillation, unspecified; F03.90 Unspecified dementia, unspecified severity, without behavioral disturbance, psychotic disturbance, mood disturbance, and anxiety; I10 Essential (primary) hypertension; K21.9 Gastro-esophageal reflux disease without esophagitis; N42.9 Disorder of prostate, unspecified; Z86.73 Personal history of transient ischemic attack (TIA), and cerebral infarction without residual deficits; Z79.82 Long term (current) use of aspirin; Z66 Do not resuscitate; R00.1 Bradycardia, unspecified
CPT/HCPCS: 36415; 71046; 80053; 83605; 85025; 85610; 85730; 93005; 99283

== ENCOUNTER 2022-10-28 10:46 | Outpatient (CLI) | payer MEDICARE, SELFPAY ==
[2022-10-28 11:45] LABS: Alveolar/Arterial O2 Gradient 23.2 mmHg; Base Excess ABG 1.9 mEq/l (+/-2.0); Carboxyhemoglobin 1.1 % THb (0-2.0); Fractional Inspired Oxygen 21 %; HCO3 ABG 26.4 mEq/l (22.0-26.0); Methemoglobin ABG 0.3 %THb (0-1.5); Oxygen Content ABG 19.8 %vol (16.0-22.0); Oxygen Saturation ABG 95.7 % (95.0-100.0); Oxyhemoglobin 93.9 % THb (90.0-100.0); PCO2 ABG 41.2 mmHg (35.0-45.0); PO2 ABG 77.2 mmHg (80.0-100.0); PO2 FiO2 Ratio Arterial Blood 3.68 %; Reduced Hemoglobin 4.7 %THb (0-5.0); pH ABG 7.425 (7.350-7.450)
[2022-10-28 11:46] LABS: Device ROOM AIR; Modified Allen's Test Pass; Site Drawn RIGHT RADIAL
[2022-10-28 13:15] LABS: Free T4 Free Thyroxine 1.32 ng/mL (0.78-2.19)
== END 2022-10-28 10:47 | disposition home or self-care (01) ==
LOC: ANHLAB 10:47
PROVIDERS: PCP Nurse Practitioner Family; Visit Provider Internal Medicine Pulmonary Disease
DX: R06.09 Other forms of dyspnea (principal); G47.10 Hypersomnia, unspecified
CPT/HCPCS: 36415; 36600; 82375; 82805; 83050; 84439; 84443

== ENCOUNTER → 2022-12-08 12:40 | Outpatient (CLI) | payer MEDICARE, SELFPAY ==
--- NOTE | ~2022-12-08 | CT_ITS ---
EXAMINATION: CT abdomen pelvis w con DATE: 12/08/2022 13:23 INDICATION: Mass of subcutaneous tissue of abdominal wall. TECHNIQUE: Computed tomography (CT) of the abdomen and pelvis was performed with 100 mL Omnipaque 350 intravenous contrast. Automated exposure control and iterative reconstruction technique were employe d. The dose-length product was 986.81 mGy-cm. COMPARISON: CT abdomen and pelvis 03/14/2022 FINDINGS: The visualized portions of the lung bases demonstrate mild atelectasis. No pleural effusion . The heart size is normal. There are coronary artery calcifications. No pericardial effusion. There is a large sliding hiatal hernia. The liver, spleen, pancreas, and adrenal glands are normal. There a re gallstones in the gallbladder, which is normal in size. There are cysts in the kidneys measuring u p to 5.1 cm on the left. There is cortical thinning of left kidney. The bladder demonstrates a trabec ulated wall. Stool distends the rectum. There is diverticulosis of the colon without evidence of dive rticulitis. There is a ventral hernia containing nonobstructed sigmoid colon and transverse colon. Th e appendix is normal. There are no pathologically enlarged lymph nodes. There is no free intraperiton eal fluid. There is a left inguinal hernia containing fat. There is lumbar dextroscoliosis and severe spondylosis. IMPRESSION: 1. Large sliding hiatal hernia. 2. Ventral hernia containing nonobstructed sigmoid colon and transverse colon. 3. Left inguinal hernia containing fat. Reviewed, dictated and finalized at location A. CONFINEMENT SYSTEM MANAGER
[2022-12-08 13:07] LABS: Estimated Glomerular Filt Rate 53
== END ==
PROVIDERS: PCP Nurse Practitioner Family; Visit Provider Nurse Practitioner Family
DX: K44.9 Diaphragmatic hernia without obstruction or gangrene (principal); K43.9 Ventral hernia without obstruction or gangrene; K40.90 Unilateral inguinal hernia, without obstruction or gangrene, not specified as recurrent
CPT/HCPCS: 74177; Q9967

== ENCOUNTER 2022-12-23 14:16 | Emergency (ER) | payer MEDICARE, SELFPAY ==
[2022-12-23] VITALS (11 sets, daily range): BP systolic 144–151; BP diastolic 78–103; PULSE 66–138; RESP 10–20; TEMP 36.6; O2SAT 98–99
--- NOTE | ~2022-12-23 | US_ITS ---
EXAMINATION:US venous doppler LE LT INDICATION:Left leg swelling and redness TECHNIQUE: Multiple grayscale, color flow and Doppler images of the left lower extremity deep venous systems were obtained and reviewed. COMPARISON:No prior studies for comparison. FINDINGS: The common femoral, superficial femoral and popliteal veins demonstrate normal respiratory variation, augmentation and compressibility. Color flow is also seen within the posterior tibial, pe roneal, greater saphenous and profunda veins. IMPRESSION: 1: No lower extremity deep venous thrombosis. Reviewed, dictated and finalized at location A. N PROFESSIONAL
--- NOTE | ~2022-12-23 | XR_ITS ---
XR ankle LT min 3V 12/23/2022 18:49 Indication: Left ankle pain. Ecchymosis. Procedure: 4 views left ankle Comparison: No prior studies for comparison. Findings: Ankle mortise intact. Moderate diffuse soft tissue swelling. Talar dome is normal. There is atherosclerosis of the aorta. No foreign bodies. No acute fracture or traumatic malalignment. Impression: 1: No acute bone or joint abnormality. Reviewed, dictated and finalized at location A. N OUTFITTER Impression: 1: No acute bone or joint abnormality.
[2022-12-23 17:02] LABS: Basophils Absolute Auto 0.1 K/mm3 (0.0-0.1); Basophils Percent Auto 1.1 % (0.2-1.2); Eosinophils Absolute Auto 0.3 K/mm3 (0-0.3); Hematocrit 44.2 % (42.0-52.0); Hemoglobin 14.2 g/dL (14.0-18.0); Immature Granulocyte Percent A 2.1 % (0-0.5); Lymphocytes Absolute Auto 1.07 K/mm3 (0.9-3.2); Lymphocytes Percent Auto 11.2 % (18.3-44.2); Mean Corpuscular HGB Conc 32.1 g/dl (32-36); Mean Corpuscular Hemoglobin 32.4 pg (26-34); Mean Corpuscular Volume 100.9 fl (80-100); Mean Platelet Volume 9.2 fl (7.4-10.4); Monocytes Absolute Auto 1.8 K/mm3 (0.1-0.6); Monocytes Percent Auto 18.7 % (2.6-8.5); Neutrophils Absolute Auto 6.1 K/mm3 (1.3-6.7); Neutrophils Percent Auto 63.9 % (45.5-73.1); Platelet Count Result 223 k/mm3 (150-375); Red Blood Count 4.38 M/mm3 (4.6-6.20); Red Cell Distribution Width 13.4 % (11.5-14.5); White Blood Count 9.6 K/mm3 (4.5-10.0)
[2022-12-23 17:12] LABS: Prothrombin Time 12.4 Seconds (11.1-14.7)
[2022-12-23 17:13] LABS: Partial Thromboplastin Time 26.8 SECONDS (22.3-36.8)
[2022-12-23 17:19] LABS: Anion Gap 3 mmol/L (8-16); Blood Urea Nitrogen 17 mg/dL (9-20); Calcium 8.9 mg/dL (8.4-10.2); Carbon Dioxide 32 mmol/L (22-30); Chloride 101 mmol/L (98-107); Estimated CRCL calculation 48 ml/min; Estimated Glomerular Filt Rate > 60; Glucose 92 mg/dL (65-110); Sodium 136 mmol/L (137-145)
--- NOTE | 2022-12-23 18:04 | ED.EXTPRO ---
HPI - Extremity Problem General Chief complaint: Extremity Problem,Nontraumatic Stated complaint: left lower leg swelling Time Seen by Provider: 12/23/22 17:12 History of Present Illness HPI Narrative: Patient is an 82-year-old male presenting with left lower leg swelling. Patient reports for the last day or 2 he has noticed swelling in his left calf as well as some redness. States that sometimes it hurts. Patient is coming from a facility who is concerned for DVT. Currently, the patient denies any complaints. No chest pain, shortness of breath, abdominal pain, vomiting, diarrhea, dysuria. Related Data Home Medications Medication Instructions Recorded Confirmed coenzyme Q10 100 mg capsule 100 mg PO DAILY 11/14/19 10/28/22 (CoQ-10) lutein 6 mg capsule 6 mg PO DAILY 11/14/19 10/28/22 docusate sodium 100 mg capsule 100 mg PO BID PRN Constipation 03/28/20 10/28/22 (Colace) cranberry extract 500 mg capsule mg 03/14/22 10/28/22 (Cranberry Concentrate) albuterol sulfate 90 mcg/actuation 2 puff inhalation Q4H PRN 08/18/22 10/28/22 aerosol inhaler aspirin 81 mg chewable tablet 81 mg PO DAILY 08/18/22 10/28/22 atorvastatin 10 mg tablet 10 mg PO DAILY 08/18/22 10/28/22 carbidopa ER 25 mg-levodopa 100 mg 1 tablet PO TID 08/18/22 10/28/22 tablet,extended release clotrimazole-betamethasone 1 1 applic topical BID 08/18/22 10/28/22 %-0.05 % topical cream famotidine 20 mg tablet 20 mg PO DAILY 08/18/22 10/28/22 ferrous sulfate 325 mg (65 mg 325 mg PO BID 08/18/22 10/28/22 iron) tablet (FeroSul) memantine 10 mg tablet 10 mg PO BID 08/18/22 10/28/22 metoprolol tartrate 25 mg tablet 12.5 mg PO BID 08/18/22 10/28/22 nystatin 100,000 unit/gram topical 1 applic topical BID 08/18/22 10/28/22 powder quetiapine 25 mg tablet 25 mg PO QHS 08/18/22 10/28/22 Allergies Allergy/AdvReac Type Severity Reaction Status Date / Time Penicillins Allergy Unknown Unknown Verified 10/28/22 09:58 Nahqcpy-YFB-[id number] Reductase Allergy Unknown Verified 12/23/22 18:58 Inhibitor Review of Systems Review of Systems: All systems reviewed & are unremarkable except as noted in HPI and below PMFSH Past Medical History Medical History Allergies Chronic atrial fibrillation (Unknown) Dementia without behavioral disturbance 01/30/19 Dyslipidemia (Unknown) Essential (primary) hypertension GERD without esophagitis Hx of bladder problems Hypertension Prostate disease Rosacea Stroke 09/2018 Unsteady gait Surgical History Surgical History No pertinent past surgical history Family History Family History Father Hypertension Family history of cardiovascular disease Mother Carcinoma of colon Social History Social History Social History: The patient is a DNR. Patient is and has 1 daughter. He does not have a durable power attorney law clerk for healthcare. The patient resides at [facility]. 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 The patient denied any alcohol, marijuana, or illicit drugs. Smoking status: Never smoker Second hand tobacco smoke exposure: No Alcohol intake: never Substance use: never Substance use type: does not use Living arrangements: alone Gender identity (if verbalized by the patient): Male Spiritual care concerns: No Exam Narrative: GENERAL: Elderly male laying in bed in no acute distress HEAD: Normocephalic, atraumatic. EYES: PERRLA and EOMI. ENT: Nares clear, no rhinorrhea or epistaxis. Mucous membranes moist. NECK: Supple. CHEST: No respiratory distress. HEART: Regular rate and rhythm. ABDOMEN: Soft, nontender, nondistended EXTREMITIES: Normal range of motion. Mild equal edema of bilateral lower extremities, le
[2022-12-23] MEDS: CEPHALEXIN 500 MG CAPSULE PO (18:57)
--- NOTE | 2022-12-23 20:01 | PC.NURSE ---
Call roberth at 1951, eta [phone].
[2022-12-24 03:07] VITALS: BP 159/94; PULSE 82; RESP 18; O2SAT 95
== END 2022-12-24 03:09 ==
PROVIDERS: Emergency Provider Emergency Medicine; PCP Nurse Practitioner Family
DX: L03.116 Cellulitis of left lower limb (principal); I48.20 Chronic atrial fibrillation, unspecified; F03.90 Unspecified dementia, unspecified severity, without behavioral disturbance, psychotic disturbance, mood disturbance, and anxiety; E78.5 Hyperlipidemia, unspecified; I10 Essential (primary) hypertension; K21.9 Gastro-esophageal reflux disease without esophagitis; Z66 Do not resuscitate; Z86.73 Personal history of transient ischemic attack (TIA), and cerebral infarction without residual deficits; N42.9 Disorder of prostate, unspecified; Z79.82 Long term (current) use of aspirin
CPT/HCPCS: 36415; 73610; 80048; 85025; 85610; 85730; 93971; 99284; A9270

== ENCOUNTER 2023-03-18 21:55 | Emergency (ER) | payer MEDICARE, SELFPAY ==
[2023-03-18] VITALS (12 sets, daily range): BP systolic 124–139; BP diastolic 76–96; PULSE 60–120; RESP 18; TEMP 36.4; O2SAT 90–94
--- NOTE | ~2023-03-18 | XR_ITS ---
EXAMINATION: XR chest 1V 03/18/2023 23:06 INDICATION: Status post fall. Altered mental status. PROCEDURE: AP view of the chest COMPARISON: Comparison to multiple prior studies sequentially, with oldest reviewed study dated 02/17. FINDINGS: The lungs are clear. The cardiomediastinal silhouette is within normal limits. There are no pleural effusions. There is no pneumothorax suspected. There are degenerative changes of the lef t glenohumeral joint. There is scoliosis. IMPRESSION: 1: NO ACUTE CARDIOPULMONARY DISEASE. Reviewed, dictated and finalized at location A.
--- NOTE | ~2023-03-18 | CT_ITS ---
EXAMINATION: CT brain wo con DATE: 03/18/2023 23:06 INDICATION: Status post fall TECHNIQUE: Computed tomography (CT) of the head was performed without intravenous contrast. The dose- length product was 605.33 mGy-cm. Automated exposure control and iterative reconstruction technique w ere employed. COMPARISON: None FINDINGS: Generalized atrophy. There are scattered mild periventricular and subcortical white matter changes, most likely related to small vessel ischemic disease (microangiopathy). There is ventriculom egaly which is disproportionate to degree of atrophy, suspicious for normal pressure hydrocephalus. N o acute infarction, hemorrhage or mass. There is intracranial atherosclerosis. There is mucosal thick ening in the right maxillary and ethmoid sinuses. Mastoids are pneumatized. No depressed skull fractu res. IMPRESSION: 1. No acute intracranial abnormality. 2: Disproportionate ventriculomegaly compared with the degree of atrophy, suspicious for normal press ure hydrocephalus. Clinically correlate. Reviewed, dictated and finalized at location A. IMPRESSION: 1. No acute intracranial abnormality. 2: Disproportionate ventriculomegaly compared with the degree of atrophy, suspi cious for normal pressure hydrocephalus. Clinically correlate.
--- NOTE | ~2023-03-18 | XR_ITS ---
XR elbow RT min 3V 03/18/2023 23:05 INDICATION: Status post fall. Altered mental status. PROCEDURE: 4 views right elbow COMPARISON: No prior studies for comparison. FINDINGS: Fracture, dislocation or subluxation is not identified. There is a lytic defect of the radi al head. No significant joint effusion. The soft tissues appear within normal limits. No foreign bod ies are identified. IMPRESSION: 1: NO ACUTE BONE OR JOINT ABNORMALITY IDENTIFIED. 2: Lytic defect radial head, nonspecific. Consider metastatic disease and myeloma. Reviewed, dictated and finalized at location A. IMPRESSION: 1: NO ACUTE BONE OR JOINT ABNORMALITY IDENTIFIED. 2: Lytic defect radial head, nonspecific. Consider metastatic disease and myel adele.
--- NOTE | ~2023-03-18 | XR_ITS ---
XR shoulder RT min 2V 03/18/2023 23:05 Indication: Status post fall. Altered mental status. Procedure: 4 views right shoulder Comparison: No prior studies for comparison. Findings: No fracture, subluxation or dislocation. 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 There are mild degenerative changes of the acromioclavicular joint. Impression: 1: No acute fracture. Reviewed, dictated and finalized at location A. Impression: 1: No acute fracture.
--- NOTE | ~2023-03-18 | CT_ITS ---
EXAMINATION: CT facial & cervical spine wo DATE: 03/18/2023 23:11 INDICATION: Status post fall. Facial and neck pain TECHNIQUE: Computed tomography (CT) of the maxillofacial region and cervical spine was performed with out intravenous contrast. The dose-length product was 639.65 mGy-cm. Automated exposure control and i terative reconstruction technique were employed. COMPARISON: None FINDINGS: MAXILLOFACIAL CT: There is mucosal thickening of the maxillary and ethmoid sinuses. No acute facial bone fracture. Left witt nasal septal deviation. CERVICAL SPINE CT: There is severe loss of disc height with endplate degenerative change at all cervical spine levels. T here is subtle chronic posterior facet subluxation at C1 on C2 there is mild wedge compression deform ity of T3 which appears chronic. No acute fracture, subluxation or dislocation. There is advanced mul tilevel uncinate and facet hypertrophy. Lung apices are normal. Odontoid process is normal. IMPRESSION: 1. No acute abnormality of the facial bones or cervical spine. 2: Severe cervical spondylosis. 3: Moderate sinus disease. Reviewed, dictated and finalized at location A.
--- NOTE | 2023-03-18 22:08 | ECG_ITS ---
Measurements Intervals [place] Rate: 59 P: 28 CO: 174 QRS: 12 QRSD: 94 T: 29 QT: 450 QTc: 449 Interpretive Statements SINUS BRADYCARDIA ATRIAL PREMATURE COMPLEXES BORDERLINE ECG COMPARED TO ECG 10/15/2022 22:18:45 NO SIGNIFICANT CHANGES Electronically Signed On 03-19-2023 6:08:57 CDT by Feliciano Can D.O.
[2023-03-18 22:25] LABS: Basophils Absolute Auto 0.1 K/mm3 (0.0-0.1); Eosinophils Percent Auto 10.2 % (0-4.4); Hematocrit 37.7 % (42.0-52.0); Immature Granulocyte Absolute 0.18 K/mm3 (0.00-0.031); Immature Granulocyte Percent A 1.8 % (0-0.5); Lymphocytes Absolute Auto 1.45 K/mm3 (0.9-3.2); Lymphocytes Percent Auto 14.3 % (18.3-44.2); Mean Corpuscular HGB Conc 31.8 g/dl (32-36); Mean Corpuscular Hemoglobin 31.8 pg (26-34); Mean Platelet Volume 9.2 fl (7.4-10.4); Monocytes Absolute Auto 1.7 K/mm3 (0.1-0.6); Monocytes Percent Auto 16.8 % (2.6-8.5); Neutrophils Absolute Auto 5.7 K/mm3 (1.3-6.7); Neutrophils Percent Auto 55.9 % (45.5-73.1); Platelet Count Result 202 k/mm3 (150-375); Red Blood Count 3.77 M/mm3 (4.6-6.20); Red Cell Distribution Width 13.1 % (11.5-14.5); White Blood Count 10.2 K/mm3 (4.5-10.0)
[2023-03-18 22:38] LABS: Prothrombin Time 13.7 Seconds (11.1-14.7)
[2023-03-18 22:39] LABS: Partial Thromboplastin Time 26.5 SECONDS (22.3-36.8)
[2023-03-18 22:42] LABS: Alanine Aminotransferase 15 U/L (6-50); Albumin Level 3.2 g/dL (3.5-5.1); Alkaline Phosphatase 78 U/L (38-126); Anion Gap 4 mmol/L (8-16); Aspartate Amino Transferase 19 U/L (17-59); Bilirubin,Total 0.5 mg/dL (0.2-1.3); Blood Urea Nitrogen 22 mg/dL (9-20); Calcium 7.5 mg/dL (8.4-10.2); Carbon Dioxide 27 mmol/L (22-30); Chloride 105 mmol/L (98-107); Estimated CRCL calculation 63 ml/min; Estimated Glomerular Filt Rate > 60; Glucose 88 mg/dL (65-110); Potassium 3.3 mmol/L (3.4-5.0); Sodium 136 mmol/L (137-145)
[2023-03-18 22:50] LABS: Appearance Urine Clear (Clear); Bacteria Urine None Seen /hpf; Bilirubin Urine Negative (Negative); Blood Urine Negative (Negative); Color Urine Yellow (Yellow); Glucose Urine UA Negative (Negative); Ketones Urine Negative (Negative); Leukocyte Esterase Ur Negative LEU/UL (Negative); Mucus Urine Present /lpf; Nitrate Urine Negative (Negative); Protein Urine 1+ mg/dL (Negative); RBC Urine 0-2 /hpf (0-2); Specific Grav Ur 1.022 (1.001-1.035); Squamous Epithelial Cell Urine None seen /hpf (Few); WBC Urine 0-5 /hpf; pH Urine 5.5 (5.0-9.0)
[2023-03-18 22:51] LABS: Add Urine Microscopic? YES
--- NOTE | 2023-03-18 23:04 | PC.NURSE ---
Report received from MEKA Woods. Assumed care of patient at this time. Patient in imaging.
--- NOTE | 2023-03-18 23:47 | ED.GENADULT ---
HPI - General Adult General Chief complaint: Fall Stated complaint: fall, altered Time Seen by Provider: 03/18/23 22:09 History of Present Illness HPI narrative: This is an 82-year-old dementia patient from the senior living presenting after a ground level fall. Patient is A&O x1 at baseline. He can provide no useful intermittent for March during the interview. Per EMS he fell trying to transfer himself from the bed to the wheelchair. He believes he struck his head but he is unsure. Patient does have an abrasion over his forehead. Related Data Home Medications Medication Instructions Recorded Confirmed coenzyme Q10 100 mg capsule 100 mg PO DAILY 11/14/19 10/28/22 (CoQ-10) lutein 6 mg capsule 6 mg PO DAILY 11/14/19 10/28/22 docusate sodium 100 mg capsule 100 mg PO BID PRN Constipation 03/28/20 10/28/22 (Colace) cranberry extract 500 mg capsule mg 03/14/22 10/28/22 (Cranberry Concentrate) albuterol sulfate 90 mcg/actuation 2 puff inhalation Q4H PRN 08/18/22 10/28/22 aerosol inhaler aspirin 81 mg chewable tablet 81 mg PO DAILY 08/18/22 10/28/22 atorvastatin 10 mg tablet 10 mg PO DAILY 08/18/22 10/28/22 carbidopa ER 25 mg-levodopa 100 mg 1 tablet PO TID 08/18/22 10/28/22 tablet,extended release clotrimazole-betamethasone 1 1 applic topical BID 08/18/22 10/28/22 %-0.05 % topical cream famotidine 20 mg tablet 20 mg PO DAILY 08/18/22 10/28/22 ferrous sulfate 325 mg (65 mg 325 mg PO BID 08/18/22 10/28/22 iron) tablet (FeroSul) memantine 10 mg tablet 10 mg PO BID 08/18/22 10/28/22 metoprolol tartrate 25 mg tablet 12.5 mg PO BID 08/18/22 10/28/22 nystatin 100,000 unit/gram topical 1 applic topical BID 08/18/22 10/28/22 powder quetiapine 25 mg tablet 25 mg PO QHS 08/18/22 10/28/22 Allergies Allergy/AdvReac Type Severity Reaction Status Date / Time Penicillins Allergy Unknown Unknown Verified 10/28/22 09:58 Czolgqf-FXP-MaY Reductase Allergy Unknown Verified 12/23/22 18:58 Inhibitor [facility] Past Medical History Medical History Allergies Chronic atrial fibrillation (Unknown) Dementia without behavioral disturbance 01/30/19 Dyslipidemia (Unknown) Essential (primary) hypertension GERD without esophagitis Hx of bladder problems Hypertension Prostate disease Rosacea Stroke 09/2018 Unsteady gait Surgical History Surgical History No pertinent past surgical history Family History Family History Father Hypertension Family history of cardiovascular disease Mother Carcinoma of colon Social History Social History Social History: The patient is a DNR. Patient is and has 1 daughter. He does not have a durable power sports attorney for healthcare. The patient resides at [facility]. 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 The patient denied any alcohol, marijuana, or illicit drugs. Smoking status: Never smoker Second hand tobacco smoke exposure: No Alcohol intake: never Substance use: never Substance use type: does not use Living arrangements: alone Gender identity (if verbalized by the patient): Male Spiritual care concerns: No Exam Narrative: APPEARANCE: A&O x1. Head: abrasion over eyebrow EYES: EOMI, NOSE: Atraumatic NECK: no midline cervical tenderness, no neck pain RESPIRATORY: No increased rate of breathing, clear to auscultation CARDIOVASCULAR: RRR, no peripheral edema ABDOMINAL large ventral hernia, nontender no guarding or rebound MUSCULOSKELETAl: No obvious deformities, head to toe trauma exam revealed no areas of tenderness deformity or pain with range of motion. Significant bruising over the right upper extremity. Patient is unable to tell me if this is new or not. NEURO: Alert. Movi
[2023-03-19 00:03] VITALS: PULSE 59; O2SAT 92
[2023-03-19 00:15] VITALS: PULSE 115; O2SAT 93
[2023-03-19 00:31] VITALS: BP 118/79; PULSE 55; RESP 19; O2SAT 92
[2023-03-19 01:19] VITALS: BP 137/94; PULSE 98; RESP 17; O2SAT 98
== END 2023-03-19 01:20 ==
PROVIDERS: Emergency Provider Emergency Medicine; PCP Nurse Practitioner Family
DX: S00.81XA Abrasion of other part of head, initial encounter (principal); S40.021A Contusion of right upper arm, initial encounter; R26.81 Unsteadiness on feet; R93.0 Abnormal findings on diagnostic imaging of skull and head, not elsewhere classified; F03.90 Unspecified dementia, unspecified severity, without behavioral disturbance, psychotic disturbance, mood disturbance, and anxiety; I48.20 Chronic atrial fibrillation, unspecified; E78.5 Hyperlipidemia, unspecified; I10 Essential (primary) hypertension; N42.9 Disorder of prostate, unspecified; K21.9 Gastro-esophageal reflux disease without esophagitis; Z86.73 Personal history of transient ischemic attack (TIA), and cerebral infarction without residual deficits; Z79.82 Long term (current) use of aspirin; Z66 Do not resuscitate; I49.1 Atrial premature depolarization; J32.9 Chronic sinusitis, unspecified; M47.812 Spondylosis without myelopathy or radiculopathy, cervical region; R93.6 Abnormal findings on diagnostic imaging of limbs; W06.XXXA Fall from bed, initial encounter
CPT/HCPCS: 36415; 70450; 70486; 71045; 72125; 73030; 73080; 80053; 81001; 85025; 85610; 85730; 93005; 99284

== ENCOUNTER 2023-05-04 04:37 | Emergency (ER) | payer MEDICARE, SELFPAY ==
--- NOTE | ~2023-05-04 | XR_ITS ---
Portable chest x-ray Comparison: 03/18/2023 Clinical History: Altered mental status Findings: Lungs are clear, without focal consolidation or pleural effusion. Cardiomediastinal silho uette is stable. Bones and soft tissues are unremarkable. Impression: Clear lungs. Reviewed, dictated and finalized at location . Impression: Clear lungs.
[2023-05-04 04:40] VITALS: BP 129/84; PULSE 104; RESP 11; TEMP 36.4; O2SAT 93
--- NOTE | 2023-05-04 04:52 | ECG_ITS ---
Measurements Intervals [place] Rate: 125 P: ME: 0 QRS: 3 QRSD: 93 T: -2 QT: 332 QTc: 480 Interpretive Statements ATRIAL FIBRILLATION WITH RAPID VENTRICULAR RESPONSE WITH ABERRANT CONDUCTION OR VENTRICULAR PREMATURE COMPLEXES MODERATE ST DEPRESSION [0.05+ mV ST DEPRESSION] ABNORMAL ECG COMPARED TO ECG 03/18/2023 22:24:39 ATRIAL FIBRILLATION NOW PRESENT ABERRANT CONDUCTION OF SUPRAVENTRICULAR BEAT(S) NOW PRESENT ST (T WAVE) DEVIATION NOW PRESENT Electronically Signed On 05-04-2023 11:58:00 CDT by Lars Benavidez M.D.
--- NOTE | 2023-05-04 04:52 | ED.AMS ---
HPI - Altered Mental Status General Chief Complaint: Altered Mental Status Stated Complaint: AMS, LOWER LEG INFECTION Time Seen by Provider: 05/04/23 04:41 History of Present Illness HPI narrative: Per EMS/penitentiary, patient has history of dementia, but they feel he has been more confused than usual. Patient denies any complaints. Related Data Home Medications Medication Instructions Recorded Confirmed coenzyme Q10 100 mg capsule 100 mg PO DAILY 11/14/19 10/28/22 (CoQ-10) lutein 6 mg capsule 6 mg PO DAILY 11/14/19 10/28/22 docusate sodium 100 mg capsule 100 mg PO BID PRN Constipation 03/28/20 10/28/22 (Colace) cranberry extract 500 mg capsule mg 03/14/22 10/28/22 (Cranberry Concentrate) albuterol sulfate 90 mcg/actuation 2 puff inhalation Q4H PRN 08/18/22 10/28/22 aerosol inhaler aspirin 81 mg chewable tablet 81 mg PO DAILY 08/18/22 10/28/22 atorvastatin 10 mg tablet 10 mg PO DAILY 08/18/22 10/28/22 carbidopa ER 25 mg-levodopa 100 mg 1 tablet PO TID 08/18/22 10/28/22 tablet,extended release clotrimazole-betamethasone 1 1 applic topical BID 08/18/22 10/28/22 %-0.05 % topical cream famotidine 20 mg tablet 20 mg PO DAILY 08/18/22 10/28/22 ferrous sulfate 325 mg (65 mg 325 mg PO BID 08/18/22 10/28/22 iron) tablet (FeroSul) memantine 10 mg tablet 10 mg PO BID 08/18/22 10/28/22 metoprolol tartrate 25 mg tablet 12.5 mg PO BID 08/18/22 10/28/22 nystatin 100,000 unit/gram topical 1 applic topical BID 08/18/22 10/28/22 powder quetiapine 25 mg tablet 25 mg PO QHS 08/18/22 10/28/22 Allergies Allergy/AdvReac Type Severity Reaction Status Date / Time Penicillins Allergy Unknown Unknown Verified 04/13/23 10:03 Mmgzqbh-GIR-DrE Reductase Allergy Unknown Verified 04/13/23 10:03 Inhibitor Review of Systems Review of Systems: CONST: No fever. HEENT: No sore throat C/V: No chest pain RESP: No cough GI: No abdominal pain : No dysuria. M/S: No joint pain. SKIN: No rash. NEURO: [No headache or focal numbness or weakness] PSYCH: [No depression] [facility] Past Medical History Medical History Allergies Chronic atrial fibrillation (Unknown) Dementia without behavioral disturbance 01/30/19 Dyslipidemia (Unknown) Essential (primary) hypertension GERD without esophagitis Hx of bladder problems Hypertension Prostate disease Rosacea Stroke 09/2018 Unsteady gait Surgical History Surgical History No pertinent past surgical history Family History Family History Father Hypertension Family history of cardiovascular disease Mother Carcinoma of colon Social History Social History Social History: The patient is a DNR. Patient is and has 1 daughter. He does not have a durable power attorney general for healthcare. The patient resides at [facility]. 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 The patient denied any alcohol, marijuana, or illicit drugs. Smoking status: Never smoker Second hand tobacco smoke exposure: No Alcohol intake: never Substance use: never Substance use type: does not use Lack of Transportation: No Lack of Food: Never True Current Housing: I Have Housing Concerned About Future Housing: No Difficulty Paying Gas/Electric Bills: No Difficulty Paying for Meds: No Currently Unemployed: No Education: Master's Degree or Higher Difficulty w/ Childcare or Family Care: No Living arrangements: alone Gender identity (if verbalized by the patient): Male Spiritual care concerns: No Exam Narrative: EXAMINATION OF ORGAN SYSTEMS/BODY AREAS: Constitutional: Vital signs per nursing GENERAL:[No acute distress, non-toxic appearing.] HEAD: Normal with no signs of head trauma. EYES: EOMI, conjunctiva no
[2023-05-04 05:42] VITALS: RESP 12; O2SAT 95
[2023-05-04] MEDS: ceFAZolin 1 GM/NS 50 ML 1 GM/50 ML BAG IVPB (05:47)
[2023-05-04 05:51] LABS: Basophils Absolute Auto 0.1 K/mm3 (0.0-0.1); Basophils Percent Auto 0.8 % (0.2-1.2); Eosinophils Absolute Auto 0.4 K/mm3 (0-0.3); Eosinophils Percent Auto 4.1 % (0-4.4); Hematocrit 43.4 % (42.0-52.0); Hemoglobin 13.9 g/dL (14.0-18.0); Immature Granulocyte Absolute 0.15 K/mm3 (0.00-0.031); Immature Granulocyte Percent A 1.4 % (0-0.5); Lymphocytes Absolute Auto 1.08 K/mm3 (0.9-3.2); Lymphocytes Percent Auto 10.2 % (18.3-44.2); Mean Corpuscular Hemoglobin 31.5 pg (26-34); Mean Corpuscular Volume 98.4 fl (80-100); Mean Platelet Volume 9.2 fl (7.4-10.4); Monocytes Absolute Auto 1.6 K/mm3 (0.1-0.6); Monocytes Percent Auto 15.1 % (2.6-8.5); Neutrophils Absolute Auto 7.2 K/mm3 (1.3-6.7); Neutrophils Percent Auto 68.4 % (45.5-73.1); Platelet Count Result 245 k/mm3 (150-375); Red Blood Count 4.41 M/mm3 (4.6-6.20); White Blood Count 10.6 K/mm3 (4.5-10.0)
[2023-05-04 05:53] LABS: Glucose Point of Care 121 mg/dl (65-105)
[2023-05-04] MEDS: LACTATED RINGERS 1,000 ML 999 ML IV CONT (05:55)
[2023-05-04 06:00] LABS: Acetaminophen < 10 ug/mL (10-30); Ammonia < 9 umol/L (9-30); Ethanol < 10 mg/dL (<10); Salicylate < 1.0 mg/dL (2-20)
[2023-05-04 06:01] LABS: Alanine Aminotransferase 18 U/L (6-50); Albumin Level 3.8 g/dL (3.5-5.1); Alkaline Phosphatase 93 U/L (38-126); Anion Gap 4 mmol/L (8-16); Aspartate Amino Transferase 21 U/L (17-59); Bilirubin,Total 0.6 mg/dL (0.2-1.3); Blood Urea Nitrogen 19 mg/dL (9-20); Carbon Dioxide 30 mmol/L (22-30); Chloride 102 mmol/L (98-107); Estimated CRCL calculation 48 ml/min; Estimated Glomerular Filt Rate 58; Glucose 106 mg/dL (65-110); Potassium 3.7 mmol/L (3.4-5.0); Sodium 136 mmol/L (137-145)
[2023-05-04 06:55] LABS: Appearance Urine Clear (Clear); Bacteria Urine None Seen /hpf; Bilirubin Urine Negative (Negative); Blood Urine Negative (Negative); Color Urine Yellow (Yellow); Glucose Urine UA Negative (Negative); Ketones Urine Trace mg/dL (Negative); Leukocyte Esterase Ur Negative LEU/UL (Negative); Nitrate Urine Negative (Negative); Protein Urine 1+ mg/dL (Negative); RBC Urine 0-2 /hpf (0-2); Specific Grav Ur 1.023 (1.001-1.035); Squamous Epithelial Cell Urine None seen /hpf (Few); WBC Urine 0-5 /hpf
[2023-05-04 07:03] LABS: Add Urine Microscopic? YES
[2023-05-04] MEDS: MICONAZOLE NITRATE 2% CREAM 30 GM TUBE 1 APPLIC TOPICAL (07:12)
[2023-05-04 07:13] VITALS: PULSE 132
[2023-05-04] MEDS: METOPROLOL TARTRATE 12.5 MG TABLET PO (07:13)
[2023-05-04 07:22] VITALS: PULSE 118
[2023-05-04 07:23] VITALS: BP 138/97; PULSE 106; RESP 95; O2SAT 17
--- NOTE | 2023-05-04 07:44 | PC.NURSE ---
Attempted to call nurse to nurse report w/ [facility] at this time, no answer. Attempted to notify daughter/MORENITA Oliva at given phone number of [phone], no answer, left VM for family member to call back at this time.
--- NOTE | 2023-05-04 08:06 | PC.NURSE ---
called dietary and ordered breakfast tray for pt at this time (awaiting EMS transport to [place] w/ get 0900 arrival time)
== END 2023-05-04 08:54 ==
PROVIDERS: Emergency Provider Emergency Medicine; PCP Nurse Practitioner Family
DX: L03.314 Cellulitis of groin (principal); F03.90 Unspecified dementia, unspecified severity, without behavioral disturbance, psychotic disturbance, mood disturbance, and anxiety; I48.20 Chronic atrial fibrillation, unspecified; E78.5 Hyperlipidemia, unspecified; I10 Essential (primary) hypertension; N42.9 Disorder of prostate, unspecified; K21.9 Gastro-esophageal reflux disease without esophagitis; Z86.73 Personal history of transient ischemic attack (TIA), and cerebral infarction without residual deficits; Z66 Do not resuscitate; Z79.899 Other long term (current) drug therapy; Z79.82 Long term (current) use of aspirin; I49.3 Ventricular premature depolarization
CPT/HCPCS: 36415; 71045; 80053; 80307; 81001; 82140; 82948; 85025; 87040; 87147; 87181; 87186; 93005; 96361; 96365; 99284; A9270; J0690; J7120